=== PATIENT | female | born 1970 | race Caucasian/White ===

== ENCOUNTER 2019-03-19 18:43 | Emergency (ER) | payer BC, SELFPAY ==
[2019-03-19 18:45] VITALS: BP 133/68; PULSE 73; RESP 18; TEMP 36.5; O2SAT 100; BMI 34.9
--- NOTE | 2019-03-19 18:56 | ED.ARRPALP ---
HPI - Arrhythmia/Palpitations <KALIN Mcallister - Last Filed: 03/19/19 21:49> General Chief Complaint: Arrhythmia/Palpitations Stated Complaint: HEART PALPITAIONS Time Seen by Provider: 03/19/19 18:50 Source: patient Mode of arrival: ambulatory Limitations: no limitations History of Present Illness HPI narrative: 48-year-old female with a history of heart palpitations for the past few years, presents emergency department today complaining of increased heart palpitations today. She describes her heart palpitations as skipping a beat followed by few rapid beats. She states she has been worked up multiple times by her primary care provider for this but has been waiting for to get a halter monitor. She states today she experienced a slight amount of dizziness when she stood up and substernal chest pressure 1/10 that occurred while she was walking around her house [id number] today. She states that only lasted a couple of minutes. Recently in December her propanolol was increased to 60 mg, she took that after her increase in the heart palpitations in stated her symptoms have resolved. She denies headaches, shortness of breath, chest pain at this time, fevers, abdominal pain, nausea, vomiting, diarrhea, or dysuria. complaint: palpitations Related Data Allergies Allergy/AdvReac Type Severity Reaction Status Date / Time No Known Drug Allergies Allergy Verified 03/19/19 18:51 Review of Systems <KALIN Mcallister - Last Filed: 03/19/19 21:49> Review of Systems REVIEW OF SYSTEMS: GENERAL: Denies fever, chills, malaise, or wt. loss. HENT: No head trauma, hearing loss, rhinorrhea, epistaxis, sinus pressure, sore throat, or dysphagia. EYES: No loss of vision, double vision, eye pain, or irritation. CARDIOVASCULAR: Complains of palpitations, see HPI. RESPIRATORY: No shortness of breath, cough, or wheeze. GASTROINTESTINAL: No change in appetite, nausea, vomiting, stool changes, or melena. GENITOURINARY: No flank pain, urinary incontinence, hesitancy, frequency, or dysuria. No vaginal discharge or dyspareunia. MUSCULOSKELETAL: No pain, weakness, or deformities. INTEGUMENTARY: No rash, lesions, or pruritus. NEURO: No numbness, tingling, memory loss, confusion, or headaches. PSYCH: No behavior or mood changes. ENDOCRINOLOGY: No hair loss of temperature intolerance. HEMATOLOGY: No easy bruising. LYMPHATIC: No lymphadenopathy. PFSH <KALIN Mcallister - Last Filed: 03/19/19 21:49> Medical History Palpitations (Acute) Social History Smoking Status: Unknown if ever smoked Social History Smoking Status: Unknown if ever smoked Exam <KALIN Mcallister - Last Filed: 03/19/19 21:49> Initial Vital Signs Initial Vital Signs: Vital Signs Temperature 97.7 F 03/19/19 18:45 Pulse Rate 73 03/19/19 18:45 Respiratory Rate 18 03/19/19 18:45 Blood Pressure 133/68 03/19/19 18:45 Pulse Oximetry 100 03/19/19 18:45 PHYSICAL EXAMINATION: GENERAL: Well groomed, alert, and cooperative. Answers questions promptly and appropriately. Vital signs noted. HENT: Normocephalic, atraumatic. Ear canals patent. Oral mucosa is pink and moist. EYES: Conjunctiva pink, sclera white, no periorbital swelling. CHEST: Normal to inspection and without deformities. CARDIOVASCULAR: S1 and S2 sounds normal. Regular rate and rhythm, no murmurs, clicks, or bruits. No pedal edema. RESPIRATORY: Normal respiratory rate, trachea midline, airway patent. No stridor, nasal flaring or accessory muscle use. Lungs are clear in all [place] without wheeze, rhonchi, or crackles. GASTROINTESTINAL: Bowel sounds normoactive. Abdomen is soft and non-tender. No organomegaly. MUSCULOSKELETAL: Normal gait and coordination. Equal tone and mass bilaterally. EXTREMITIES: CMS intact. Moves all extremities. SKIN: Warm, dry, soft, appropriate color for ethnicity. No lesions, rashes, or wounds. NEURO: Alert and Oriented X 3. Good coordination. No ataxia, or sensory deficits, or cognitive issues. PSYCH: Appropriate affect and mood. <Gumaro Morgan DO - Last Filed: 03/19/19 22:42> Initial Vital Signs Initial Vital Signs: Vital Signs Temperature 97.7 F 03/19/19 18:45 Pulse Rate 73 03/19/19 18:45 Respiratory Rate 18 03/19/19 18:45 Blood Pressure 133/68 03/19/19 18:45 Pulse Oximetry 100 03/19/19 18:45 Scores <Angy MoralesKALIN mar - Last Filed: 03/19/19 21:49> HEART Score Heart Score history: Slightly Suspicious Heart Score EKG: Normal Heart Score Age: 45-64 years old Heart Score risk factors: No known risk factors Heart Score troponin: < or = to normal limit Heart Score Total: 1 Course <Angy MoralesKALIN mar - Last Filed: 03/19/19 21:49> Course Narrative: Throughout the emergency department stay, patient denied any heart palpitations. She was continuously monitored for any arrhythmias which did not occur. Orders Ordered: ED Orders 03/19/19 18:50 EKG-12 Lead Stat 03/19/19 18:56 XR chest 1V Stat 03/19/19 19:10 Complete Blood Count AUTO DIFF Stat Comprehensive Metabolic Panel Stat Magnesium Stat Thyroid Stimulating Hormone Stat Troponin & CK Cardiac Panel Stat Discontinued Medications Sodium Chloride (Normal Saline 0.9%) 1,000 mls @ 150 mls/hr IV CONT JOSE Last Infusion: 03/19/19 20:37 Dose: 150 mls/hr Admin: 03/19/19 19:03 Dose: 150 mls/hr Consultations Consultation #1: Patient staffed with Dr. morgan. Vital Signs - 8 hr 03/19/19 18:45 03/19/19 19:30 03/19/19 20:30 Temperature 97.7 F Pulse Rate 73 72 69 Respiratory Rate 18 16 14 Blood Pressure 133/68 Blood Pressure [Left Arm] 123/73 119/61 Pulse Oximetry 100 100 100 <Gumaro Morgan DO - Last Filed: 03/19/19 22:42> Orders Ordered: ED Orders 03/19/19 18:50 EKG-12 Lead Stat 03/19/19 18:56 XR chest 1V Stat 03/19/19 19:10 Complete Blood Count AUTO DIFF Stat Comprehensive Metabolic Panel Stat Magnesium Stat Thyroid Stimulating Hormone Stat Troponin & CK Cardiac Panel Stat Discontinued Medications Sodium Chloride (Normal Saline 0.9%) 1,000 mls @ 150 mls/hr IV CONT JOSE Last Infusion: 03/19/19 20:37 Dose: 150 mls/hr Admin: 03/19/19 19:03 Dose: 150 mls/hr Vital Signs - 8 hr 03/19/19 18:45 03/19/19 19:30 03/19/19 20:30 Temperature 97.7 F Pulse Rate 73 72 69 Respiratory Rate 18 16 14 Blood Pressure 133/68 Blood Pressure [Left Arm] 123/73 119/61 Pulse Oximetry 100 100 100 MDM - Arrhythmia/Palpitations <Angy FuchsKALIN - Last Filed: 03/19/19 21:49> Medical Records Attestation: I reviewed the patient's medical records. Lab Data Attestation: I reviewed the patient's lab results. Result diagrams: 03/19/19 19:10 03/19/19 19:10 Lab Results 03/19/19 03/19/19 03/19/19 Range/Units 19:10 19:10 19:10 WBC 8.6 (4.5-11.0) X10^3/uL RBC 3.95 L (4.0-5.2) X10^6/uL Hgb 11.9 L (12.0-16.0) g/dL Hct 36.1 (36-46) % MCV 91.5 (80-100) fL MCH 30.0 (26-34) PG MCHC 32.8 (30-36) % RDW 13.2 (11.6-14.8) % Plt Count 275 (150-400) X10^3/uL Neut % (Auto) 70.1 (50-75) % Lymph % (Auto) 18.6 L (25-40) % [place] % (Auto) 8.5 (3-14) % Eos % (Auto) 2.2 (2-4) % Baso % (Auto) 0.6 (0-2) % Neut # (Auto) 6100 (4653-4553) /uL Lymph # (Auto) 1600 (8784-4815) /uL [place] # (Auto) 700 (0-900) /uL Eos # (Auto) 200 (0-450) /uL Baso # (Auto) 100 (0-100) /uL Sodium 138 (137-145) mmol/L Potassium 3.9 (3.4-5.1) mmol/L Chloride 105 (98-107) mmol/L Carbon Dioxide 26 (22-32) mmol/L BUN 17 (7-17) mg/dL Creatinine 0.80 (0.52-1.04) mg/dL Estimated GFR > 60.0 (>60) mL/min BUN/Creatinine Ratio 21.3 (6-22) Glucose 110 H (70-100) mg/dL Calcium 9.1 (8.4-10.2) mg/dL Magnesium 1.8 (1.6-2.3) mg/dL Total Bilirubin 0.2 (0.2-1.3) mg/dL AST 28 (14-36) IU/L ALT 7 L (9-52) IU/L Alkaline Phosphatase 73 (38-126) U/L Total Creatine Kinase 86 (30-135) U/L CK-MB (CK-2) TNP CK-MB (CK-2) Rel Index TNP Troponin I < 0.012 (0.01-0.034) ng/mL Total Protein 7.6 (6.3-8.2) g/dL Albumin 4.3 (3.5-5.0) g/dL Globulin 3.3 (1.7-4.1) g/dL Albumin/Globulin Ratio 1.3 (1.0-2.8) TSH 0.88 (0.47-4.68) uIU/mL Imaging Data Chest x-ray: Radiologist's impression: [place] [address] XRay Report Signed Patient: Carlos Enrique Beckham#: [id number] : 1970Acct:[id number] Age/Sex: 48 / FDate of Service: 03/19/19 Loc: ED Accession Number: [id number] Procedure: XR chest 1V Ordering Provider: Angy Fuchs PROCEDURE: XR CHEST 1V INDICATIONS: Heart palp TECHNIQUE: One view of the chest was acquired. COMPARISON: None. FINDINGS: Surgical changes and devices: None. Lungs and pleura: Lungs are clear. No pleural effusions or pneumothorax. Mediastinum: Mediastinal contours appear normal. Heart size is normal. Bones and chest wall: No suspicious bony lesions. Overlying soft tissues appear unremarkable. IMPRESSION: No acute cardiopulmonary disease. Dictated by: Radhames Duran M.D. on 03/19/2019 at 19:12 Approved by: Radhames Duran M.D. on 03/19/2019 at 19:13 ECG Data Interpretation: Normal sinus rhythm, rate 67, AK interval 118, QTC 392. No ectopy no ST elevation or ST depression, no abnormal T-wave inversion.EKG was also viewed by Dr. Morgan. MDM Narrative Medical decision making narrative: Differential includes benign palpitations such as PVCs (most likely due to resolution with propanolol, report of palpitations for years, lack of other symptoms such as diaphoresis or shortness of breath, negative cardiac workup), acute coronary artery syndrome or arrhythmia (less likely negative cardiac enzymes, very little risk factors, negative chest x-ray, EKG negative for acute changes), thyroid dysfunction (less likely due to normal TSH), or hot flashes (possibility as patient states they may be correlated, however further testing is needed.). After speaking with patient I recommend further testing with cardiac monitoring if symptoms continue after discussion with primary care provider or director equipment, follow-up instructions discussed and return precautions given. Instructed patient to call director equipment tomorrow and discuss her symptoms. Review not feel like this patient needs to be admitted as her heart score is 1, this has been going on for years, and her symptoms have his resolved. Additionally, she is at lower risk for ACS. <Gumaro Morgan, DO - Last Filed: 03/19/19 22:42> Lab Data Lab Results 03/19/19 03/19/19 03/19/19 Range/Units 19:10 19:10 19:10 WBC 8.6 (4.5-11.0) X10^3/uL RBC 3.95 L (4.0-5.2) X10^6/uL Hgb 11.9 L (12.0-16.0) g/dL Hct 36.1 (36-46) % MCV 91.5 (80-100) fL MCH 30.0 (26-34) PG MCHC 32.8 (30-36) % RDW 13.2 (11.6-14.8) % Plt Count 275 (150-400) X10^3/uL Neut % (Auto) 70.1 (50-75) % Lymph % (Auto) 18.6 L (25-40) % [place] % (Auto) 8.5 (3-14) % Eos % (Auto) 2.2 (2-4) % Baso % (Auto) 0.6 (0-2) % Neut # (Auto) 6100 (1469-0311) /uL Lymph # (Auto) 1600 (3647-3405) /uL [place] # (Auto) 700 (0-900) /uL Eos # (Auto) 200 (0-450) /uL Baso # (Auto) 100 (0-100) /uL Sodium 138 (137-145) mmol/L Potassium 3.9 (3.4-5.1) mmol/L Chloride 105 (98-107) mmol/L Carbon Dioxide 26 (22-32) mmol/L BUN 17 (7-17) mg/dL Creatinine 0.80 (0.52-1.04) mg/dL Estimated GFR > 60.0 (>60) mL/min BUN/Creatinine Ratio 21.3 (6-22) Glucose 110 H (70-100) mg/dL Calcium 9.1 (8.4-10.2) mg/dL Magnesium 1.8 (1.6-2.3) mg/dL Total Bilirubin 0.2 (0.2-1.3) mg/dL AST 28 (14-36) IU/L ALT 7 L (9-52) IU/L Alkaline Phosphatase 73 (38-126) U/L Total Creatine Kinase 86 (30-135) U/L CK-MB (CK-2) TNP CK-MB (CK-2) Rel Index TNP Troponin I < 0.012 (0.01-0.034) ng/mL Total Protein 7.6 (6.3-8.2) g/dL Albumin 4.3 (3.5-5.0) g/dL Globulin 3.3 (1.7-4.1) g/dL Albumin/Globulin Ratio 1.3 (1.0-2.8) TSH 0.88 (0.47-4.68) uIU/mL Discharge Plan Departure Patient Disposition: Home Clinical Impression: Palpitations Discharge Date/Time: 03/19/19 20:38 Interventions: ED Discharge Assessment Last Done: 03/19/19 20:38 Instructions: DI for Palpitations Activity Restrictions/Additional Instructions: Thank you for entrusting me with your care today. As discussed, laboratory, x-ray, and EKG results did not show any concerning cause for your palpitations. Please follow up with her primary care provider in the next week to discuss further testing such as a Holter monitor if indicated. Return to the emergency department if you develop sudden chest pain, shortness of breath, excessive sweating, dizziness, syncope, or vomiting. <Gumaro Morgan, DO - Last Filed: 03/19/19 22:42> Cosign ED Attending Tegan Attestation: I was available for consultation during this patient's emergency department encounter
[2019-03-19] MEDS: SODIUM CHLORIDE 0.9% 1,000 ML 150 ML IV (19:03)
--- NOTE | 2019-03-19 19:03 | ED_ITS ---
HPI - Arrhythmia/Palpitations <KALIN Mcallister - Last Filed: 03/19/19 21:49> General Chief Complaint: Arrhythmia/Palpitations Stated Complaint: HEART PALPITAIONS Time Seen by Provider: 03/19/19 18:50 Source: patient Mode of arrival: ambulatory Limitations: no limitations History of Present Illness HPI narrative: 48-year-old female with a history of heart palpitations for the past few years, presents emergency department today complaining of increased heart palpitations today. She describes her heart palpitations as skipping a beat followed by few rapid beats. She states she has been worked up multiple times by her primary care provider for this but has been waiting for to get a halter monitor. She states today she experienced a slight amount of dizziness when she stood up and substernal chest pressure 1/10 that occurred while she was walking around her house [id number] today. She states that only lasted a couple of minutes. Recently in December her propanolol was increased to 60 mg, she took that after her increase in the heart palpitations in stated her symptoms have re solved. She denies headaches, shortness of breath, chest pain at this time, fevers, abdominal pain, nausea, vomiting, diarrhea, or dysuria. MD complaint: palpitations Related Data Allergies Allergy/AdvReac Type Severity Reaction Status Date / Time No Known Drug Allergies Allergy Verified 03/19/19 18:51 Review of Systems <KALIN Mcallister - Last Filed: 03/19/19 21:49> Review of Systems REVIEW OF SYSTEMS: GENERAL: Denies fever, chills, malaise, or wt. loss. HENT: No head trauma, hearing loss, rhinorrhea, epistaxis, sinus pressure, sore throat, or dysphagia. EYES: No loss of vision, double vision, eye pain, or irritation. CARDIOVASCULAR: Complains of palpitations, see HPI. RESPIRATORY: No shortness of breath, cough, or wheeze. GASTROINTESTINAL: No change in appetite, nausea, vomiting, stool changes, or melena. GENITOURINARY: No flank pain, urinary incontinence, hesitancy, frequency, or dysuria. No vaginal discharge or dyspareunia. MUSCULOSKELETAL: No pain, weakness, or deformities. INTEGUMENTARY: No rash, lesions, or pruritus. NEURO: No numbness, tingling, memory loss, confusion, or headaches. PSYCH: No behavior or mood changes. ENDOCRINOLOGY: No hair loss of temperature intolerance. HEMATOLOGY: No easy bruising. LYMPHATIC: No lymphadenopathy. PFSH <KALIN Mcallister - Last Filed: 03/19/19 21:49> Medical History Palpitations (Acute) Social History Smoking Status: Unknown if ever smoked Social History Smoking Status: Unknown if ever smoked Exam <KALIN Mcallister - Last Filed: 03/19/19 21:49> Initial Vital Signs Initial Vital Signs: Vital Signs Temperature 97.7 F 03/19/19 18:45 Pulse Rate 73 03/19/19 18:45 Respiratory Rate 18 03/19/19 18:45 Blood Pressure 133/68 03/19/19 18:45 Pulse Oximetry 100 03/19/19 18:45 PHYSICAL EXAMINATION: GENERAL: Well groomed, alert, and cooperative. Answers questions promptly and appropriately. Vital signs noted. HENT: Normocephalic, atraumatic. Ear canals patent. Oral mucosa is pink and moist. EYES: Conjunctiva pink, sclera white, no periorbital swelling. CHEST: Normal to inspection and without deformities. CARDIOVASCULAR: S1 and S2 sounds normal. Regular rate and rhythm, no murmurs, clicks, or bruits. No pedal edema. RESPIRATORY: Normal respiratory rate, trachea midline, airway patent. No stridor, nasal flaring or accessory muscle use. Lungs are clear in all [place] without wheeze, rhonchi, or crackles. GASTROINTESTINAL: Bowel sounds normoactive. Abdomen is soft and non-tender. No organomegaly. MUSCULOSKELETAL: Normal gait and coordination. Equal tone and mass bilaterally. EXTREMITIES: CMS intact. Moves all extremities. SKIN: Warm, dry, soft, appropriate color for ethnicity. No lesions, rashes, or wounds. NEURO: Alert and Oriented X 3. Good coordination. No ataxia, or sensory deficits, or cognitive issues. PSYCH: Appropriate affect and mood. <Gumaro Morgan DO - Last Filed: 03/19/19 22:42> Initial Vital Signs Initial Vital Signs: Vital Signs Temperature 97.7 F 03/19/19 18:45 Pulse Rate 73 03/19/19 18:45 Respiratory Rate 18 03/19/19 18:45 Blood Pressure 133/68 03/19/19 18:45 Pulse Oximetry 100 03/19/19 18:45 Scores <Angy FuchsKALIN - Last Filed: 03/19/19 21:49> HEART Score Heart Score history: Slightly Suspicious Heart Score EKG: Normal Heart Score Age: 45-64 years old Heart Score risk factors: No known risk factors Heart Score troponin: < or = to normal limit Heart Score Total: 1 Course <Angy FuchsKALIN - Last Filed: 03/19/19 21:49> Course Narrative: Throughout the emergency department stay, patient denied any heart palpitations. She was continuously monitored for any arrhythmias which did not occur. Orders Ordered: ED Orders 03/19/19 18:50 EKG-12 Lead Stat 03/19/19 18:56 XR chest 1V Stat 03/19/19 19:10 Complete Blood Count AUTO DIFF Stat Comprehensive Metabolic Panel Stat Magnesium Stat Thyroid Stimulating Hormone Stat Troponin & CK Cardiac Panel Stat Discontinued Medications Sodium Chloride (Normal Saline 0.9%) 1,000 mls @ 150 mls/hr IV CONT JOSE Last Infusion: 03/19/19 20:37 Dose: 150 mls/hr Admin: 03/19/19 19:03 Dose: 150 mls/hr Consultations Consultation #1: Patient staffed with Dr. morgan. Vital Signs - 8 hr 03/19/19 18:45 03/19/19 19:30 03/19/19 20:30 Temperature 97.7 F Pulse Rate 73 72 69 Respiratory Rate 18 16 14 Blood Pressure 133/68 Blood Pressure [Left Arm] 123/73 119/61 Pulse Oximetry 100 100 100 <Gumaro Morgan DO - Last Filed: 03/19/19 22:42> Orders Ordered: ED Orders 03/19/19 18:50 EKG-12 Lead Stat 03/19/19 18:56 XR chest 1V Stat 03/19/19 19:10 Complete Blood Count AUTO DIFF Stat Comprehensive Metabolic Panel Stat Magnesium Stat Thyroid Stimulating Hormone Stat Troponin & CK Cardiac Panel Stat Discontinued Medications Sodium Chloride (Normal Saline 0.9%) 1,000 mls @ 150 mls/hr IV CONT JOSE Last Infusion: 03/19/19 20:37 Dose: 150 mls/hr Admin: 03/19/19 19:03 Dose: 150 mls/hr Vital Signs - 8 hr 03/19/19 18:45 03/19/19 19:30 03/19/19 20:30 Temperature 97.7 F Pulse Rate 73 72 69 Respiratory Rate 18 16 14 Blood Pressure 133/68 Blood Pressure [Left Arm] 123/73 119/61 Pulse Oximetry 100 100 100 MDM - Arrhythmia/Palpitations <Angy FuchsKALIN - Last Filed: 03/19/19 21:49> Medical Records Attestation: I reviewed the patient's medical records. Lab Data Attestation: I reviewed the patient's lab results. Result diagrams: 03/19/19 19:10 03/19/19 19:10 Lab Results 03/19/19 03/19/19 03/19/19 Range/Units 19:10 19:10 19:10 WBC 8.6 (4.5-11.0) X10^3/uL RBC 3.95 L (4.0-5.2) X10^6/uL Hgb 11.9 L (12.0-16.0) g/dL Hct 36.1 (36-46) % MCV 91.5 (80-100) fL MCH 30.0 (26-34) PG MCHC 32.8 (30-36) % RDW 13.2 (11.6-14.8) % Plt Count 275 (150-400) X10^3/uL Neut % (Auto) 70.1 (50-75) % Lymph % (Auto) 18.6 L (25-40) % Grayson % (Auto) 8.5 (3-14) % Eos % (Auto) 2.2 (2-4) % Baso % (Auto) 0.6 (0-2) % Neut # (Auto) 6100 (1611-3497) /uL Lymph # (Auto) 1600 (3375-5630) /uL Grayson # (Auto) 700 (0-900) /uL Eos # (Auto) 200 (0-450) /uL Baso # (Auto) 100 (0-100) /uL Sodium 138 (137-145) mmol/L Potassium 3.9 (3.4-5.1) mmol/L Chloride 105 (98-107) mmol/L Carbon Dioxide 26 (22-32) mmol/L BUN 17 (7-17) mg/dL Creatinine 0.80 (0.52-1.04) mg/dL Estimated GFR > 60.0 (>60) mL/min BUN/Creatinine Ratio 21.3 (6-22) Glucose 110 H (70-100) mg/dL Calcium 9.1 (8.4-10.2) mg/dL Magnesium 1.8 (1.6-2.3) mg/dL Total Bilirubin 0.2 (0.2-1.3) mg/dL AST 28 (14-36) IU/L ALT 7 L (9-52) IU/L Alkaline Phosphatase 73 (38-126) U/L Total Creatine Kinase 86 (30-135) U/L CK-MB (CK-2) TNP CK-MB (CK-2) Rel Index TNP Troponin I < 0.012 (0.01-0.034) ng/mL Total Protein 7.6 (6.3-8.2) g/dL Albumin 4.3 (3.5-5.0) g/dL Globulin 3.3 (1.7-4.1) g/dL Albumin/Globulin Ratio 1.3 (1.0-2.8) TSH 0.88 (0.47-4.68) uIU/mL Imaging Data Chest x-ray: Radiologist's impression: [place] [address] XRay Report Signed Patient: Carlos Enrique Beckham#: [id number] : 1970Acct:[id number] Age/Sex: 48 / FDate of Service: 03/19/19 Loc: ED Accession Number: [id number] Procedure: XR chest 1V Ordering Provider: Angy Fuchs PROCEDURE: XR CHEST 1V INDICATIONS: Heart palp TECHNIQUE: One view of the chest was acquired. COMPARISON: None. FINDINGS: Surgical changes and devices: None. Lungs and pleura: Lungs are clear. No pleural effusions or pneumothorax. Mediastinum: Mediastinal contours appear normal. Heart size is normal. Bones and chest wall: No suspicious bony lesions. Overlying soft tissues appear unremarkable. IMPRESSION: No acute cardiopulmonary disease. Dictated by: Radhames Duran M.D. on 03/19/2019 at 19:12 Approved by: Radhames Duran M.D. on 03/19/2019 at 19:13 ECG Data Interpretation: Normal sinus rhythm, rate 67, WV interval 118, QTC 392. No ectopy no ST elevation or ST depression, no abnormal T-wave inversion.EKG was also viewed by Dr. Morgan. MDM Narrative Medical decision making narrative: Differential includes benign palpitations such as PVCs (most likely due to resolution with propanolol, report of palpitations for years, lack of other symptoms such as diaphoresis or shortness of breath, negative cardiac workup), acute coronary artery syndrome or arrhythmia (less likely negative cardiac enzymes, very little risk factors, negative chest x-ray, EKG negative for acute changes), thyroid dysfunction (less likely due to normal TSH), or hot flashes (possibility as patient states they may be correlated, however further testing is needed.). After speaking with patient I recommend further testing with cardiac monitoring if symptoms continue after discussion with primary care provider or ib[employer] mainframe developer, follow-up instructions discussed and return precautions given. Instructed patient to call ib[employer] mainframe developer tomorrow and discuss her symptoms. Review not feel like this patient needs to be admitted as her heart score is 1, this has been going on for years, and her symptoms have his resolved. Additionally, she is at lower risk for ACS. <Gumaro Morgan, DO - Last Filed: 03/19/19 22:42> Lab Data Lab Results 03/19/19 03/19/19 03/19/19 Range/Units 19:10 19:10 19:10 WBC 8.6 (4.5-11.0) X10^3/uL RBC 3.95 L (4.0-5.2) X10^6/uL Hgb 11.9 L (12.0-16.0) g/dL Hct 36.1 (36-46) % MCV 91.5 (80-100) fL MCH 30.0 (26-34) PG MCHC 32.8 (30-36) % RDW 13.2 (11.6-14.8) % Plt Count 275 (150-400) X10^3/uL Neut % (Auto) 70.1 (50-75) % Lymph % (Auto) 18.6 L (25-40) % Grayson % (Auto) 8.5 (3-14) % Eos % (Auto) 2.2 (2-4) % Baso % (Auto) 0.6 (0-2) % Neut # (Auto) 6100 (9695-4814) /uL Lymph # (Auto) 1600 (6098-1269) /uL Grayson # (Auto) 700 (0-900) /uL Eos # (Auto) 200 (0-450) /uL Baso # (Auto) 100 (0-100) /uL Sodium 138 (137-145) mmol/L Potassium 3.9 (3.4-5.1) mmol/L Chloride 105 (98-107) mmol/L Carbon Dioxide 26 (22-32) mmol/L BUN 17 (7-17) mg/dL Creatinine 0.80 (0.52-1.04) mg/dL Estimated GFR > 60.0 (>60) mL/min BUN/Creatinine Ratio 21.3 (6-22) Glucose 110 H (70-100) mg/dL Calcium 9.1 (8.4-10.2) mg/dL Magnesium 1.8 (1.6-2.3) mg/dL Total Bilirubin 0.2 (0.2-1.3) mg/dL AST 28 (14-36) IU/L ALT 7 L (9-52) IU/L Alkaline Phosphatase 73 (38-126) U/L Total Creatine Kinase 86 (30-135) U/L CK-MB (CK-2) TNP CK-MB (CK-2) Rel Index TNP Troponin I < 0.012 (0.01-0.034) ng/mL Total Protein 7.6 (6.3-8.2) g/dL Albumin 4.3 (3.5-5.0) g/dL Globulin 3.3 (1.7-4.1) g/dL Albumin/Globulin Ratio 1.3 (1.0-2.8) TSH 0.88 (0.47-4.68) uIU/mL Discharge Plan Departure Patient Disposition: Home Clinical Impression: Palpitations Discharge Date/Time: 03/19/19 20:38 Interventions: ED Discharge Assessment Last Done: 03/19/19 20:38 Instructions: DI for Palpitations Activity Restrictions/Additional Instructions: Thank you for entrusting me with your care today. As discussed, laboratory, x- ray, and EKG results did not show any concerning cause for your palpitations. Please follow up with her primary care provider in the next week to discuss fur ther testing such as a Holter monitor if indicated. Return to the emergency department if you develop sudden chest pain, shortness of breath, excessive sweating, dizziness, syncope, or vomiting. <Gumaro Morgan, - Last Filed: 03/19/19 22:42> Cosign ED Attending Tegan Attestation: I was available for consultation during this patient's emergency department encounter
[2019-03-19 19:21] LABS: Add Manual Diff / Slide Review NO; Basophils Absolute Auto 100 /uL (0-100); Basophils Percent Auto 0.6 % (0-2); Eosinophils Absolute Auto 200 /uL (0-450); Eosinophils Percent Auto 2.2 % (2-4); Hematocrit 36.1 % (36-46); Hemoglobin 11.9 g/dL (12.0-16.0); Lymphocytes Absolute Auto 1600 /uL (1100-4500); Lymphocytes Percent Auto 18.6 % (25-40); Mean Corpuscular HGB Conc 32.8 % (30-36); Mean Corpuscular Volume 91.5 fL (80-100); Monocytes Absolute Auto 700 /uL (0-900); Monocytes Percent Auto 8.5 % (3-14); Neutrophils Absolute Auto 6100 /uL (1500-7000); Neutrophils Percent Auto 70.1 % (50-75); Platelet Count 275 X10^3/uL (150-400); Red Blood Cell Count 3.95 X10^6/uL (4.0-5.2); Red Cell Distribution Width 13.2 % (11.6-14.8); White Blood Cell Count 8.6 X10^3/uL (4.5-11.0)
[2019-03-19 19:30] VITALS: BP 123/73; PULSE 72; RESP 16; O2SAT 100
[2019-03-19 19:38] LABS: Alanine Aminotransferase 7 IU/L (9-52); Albumin 4.3 g/dL (3.5-5.0); Albumin Globulin Ratio 1.3 (1.0-2.8); Alkaline Phosphatase 73 U/L (38-126); Aspartate Aminotransferase 28 IU/L (14-36); BUN Creatinine Ratio 21.3 (6-22); Bilirubin Total 0.2 mg/dL (0.2-1.3); Blood Urea Nitrogen 17 mg/dL (7-17); Calcium 9.1 mg/dL (8.4-10.2); Carbon Dioxide 26 mmol/L (22-32); Chloride 105 mmol/L (98-107); Creatine Kinase 86 U/L (30-135); Estimated Glomerular Filt Rate > 60.0 mL/min (>60); Globulin 3.3 g/dL (1.7-4.1); Glucose 110 mg/dL (70-100); HEMOLYSIS < 15 (0-50); Magnesium 1.8 mg/dL (1.6-2.3); Potassium 3.9 mmol/L (3.4-5.1); Sodium 138 mmol/L (137-145); Total Protein 7.6 g/dL (6.3-8.2)
[2019-03-19 19:49] LABS: Troponin I < 0.012 ng/mL (0.01-0.034)
[2019-03-19 20:08] LABS: Thyroid Stimulating Hormone 0.88 uIU/mL (0.47-4.68)
[2019-03-19 20:30] VITALS: BP 119/61; PULSE 69; RESP 14; O2SAT 100
== END 2019-03-19 20:38 | disposition home or self-care (01) ==
PROVIDERS: Emergency Provider Nurse Practitioner
DX: R00.2 Palpitations (principal)
CPT/HCPCS: 36591; 71045; 80053; 82550; 83735; 84443; 84484; 85025; 93005; 96360; 96361; 99283; 99285

== ENCOUNTER 2019-05-10 11:04 | Observation (INO) | payer BC, SELFPAY ==
[2019-05-10] VITALS (10 sets, daily range): BP systolic 102–152; BP diastolic 50–98; PULSE 56–79; RESP 14–18; TEMP 36.4–36.7; O2SAT 97–100; BMI 35.6
[2019-05-10 11:25] LABS: Add Manual Diff / Slide Review NO; Basophils Absolute Auto 0 /uL (0-100); Basophils Percent Auto 0.2 % (0-2); Eosinophils Absolute Auto 100 /uL (0-450); Eosinophils Percent Auto 1.5 % (2-4); Hematocrit 36.7 % (36-46); Hemoglobin 12.4 g/dL (12.0-16.0); Lymphocytes Absolute Auto 1800 /uL (1100-4500); Lymphocytes Percent Auto 26.2 % (25-40); Mean Corpuscular HGB Conc 33.8 % (30-36); Mean Corpuscular Hemoglobin 30.5 PG (26-34); Mean Corpuscular Volume 90.2 fL (80-100); Monocytes Absolute Auto 800 /uL (0-900); Neutrophils Absolute Auto 4200 /uL (1500-7000); Neutrophils Percent Auto 60.1 % (50-75); Platelet Count 322 X10^3/uL (150-400); Red Blood Cell Count 4.07 X10^6/uL (4.0-5.2); Red Cell Distribution Width 13.2 % (11.6-14.8)
[2019-05-10] MEDS: SODIUM CHLORIDE 0.9% 1,000 ML 150 ML IV (11:37)
[2019-05-10 11:38] LABS: Alanine Aminotransferase 11 IU/L (9-52); Albumin 4.6 g/dL (3.5-5.0); Albumin Globulin Ratio 1.4 (1.0-2.8); Alkaline Phosphatase 72 U/L (38-126); Aspartate Aminotransferase 32 IU/L (14-36); Bilirubin Total 0.5 mg/dL (0.2-1.3); Blood Urea Nitrogen 15 mg/dL (7-17); Calcium 9.6 mg/dL (8.4-10.2); Carbon Dioxide 26 mmol/L (22-32); Chloride 103 mmol/L (98-107); Creatine Kinase 121 U/L (30-135); Estimated Glomerular Filt Rate > 60.0 mL/min (>60); Globulin 3.4 g/dL (1.7-4.1); Glucose 101 mg/dL (70-100); HEMOLYSIS < 15 (0-50); Lipase 73 U/L (23-300); Magnesium 1.9 mg/dL (1.6-2.3); Potassium 4.6 mmol/L (3.4-5.1); Sodium 140 mmol/L (137-145)
[2019-05-10 11:49] LABS: Troponin I < 0.012 ng/mL (0.01-0.034)
[2019-05-10 11:53] LABS: CKMB % Relative Index 0.7 % (1.5-5.0); Creatine Kinase MB 0.87 ng/mL (<2.37)
--- NOTE | 2019-05-10 11:56 | ED_ITS ---
HPI - Arrhythmia/Palpitations General Chief Complaint: Arrhythmia/Palpitations Stated Complaint: irregular holter monitor reading Time Seen by Provider: 05/10/19 11:11 Source: patient Mode of arrival: Ambulatory Limitations: no limitations History of Present Illness HPI narrative: 48-year-old female nonsmoker with extensive history of palpitations and episodes of chest pain presents to the emergency department at the request of Cardiology. She was wearing a Holter monitor and noted extended tachycardic episodes ranging from the 180s to 200s which were symptomatic for the patient. She was sent to us for evaluation. 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 She denies any alcohol or street drugs. She denies any new medications. She denies any current symptoms. She is not dizzy nor weak or lightheaded though she become so when she is tachycardic MD complaint: rapid heart beat and heart racing Onset (ago): minute(s) Duration: now resolved Severity: moderate Context: occurred during rest Associated symptoms: near-syncope Treatments prior to arrival: beta-rose mary Related Data Home Medications Medication Instructions Recorded Confirmed ibuprofen [Advil] 200 mg PO PRN PRN 05/10/19 05/10/19 propranolol 60 mg PO DAILY 05/10/19 05/10/19 Allergies Allergy/AdvReac Type Severity Reaction Status Date / Time No Known Drug Allergies Allergy Verified 03/19/19 18:51 Review of Systems Constitutional Constitutional: Denies chills, Denies fatigue, Denies fever(s), Denies frequent falls, Denies lethargy and Denies weakness Eyes Eyes: Denies change in vision, Denies eye discharge, Denies irritation and Denies loss of vision ENT Ears, Nose, Mouth, and Throat: Denies change in voice, Denies dizziness, Denies neck pain, Denies sore throat and Denies throat swelling Cardiovascular Cardiovascular: Denies chest pain, Reports rapid heart rate, Denies irregular heart rhythm, Reports lightheadedness, Reports palpitations, Denies dyspnea, Denies dyspnea on exertion and Denies orthopnea Respiratory Respiratory: Denies cough, Denies dyspnea, Denies dyspnea on exertion and Denies wheezing Gastrointestinal Gastrointestinal: Denies abdominal pain, Denies change in bowel habits, Denies diarrhea, Denies nausea and Denies vomiting Genitourinary Genitourinary: Denies hematuria, Denies flank pain, Denies urinary incontinence and Denies urinary urgency Musculoskeletal Musculoskeletal: Denies back pain, Denies muscle weakness, Denies neck pain, Denies numbness and Denies tingling Integumentary/Breasts Skin/Breast: Denies pruritus, Denies erythema, Denies rash and Denies wounds Neurologic Neurologic: Denies behavioral changes, Denies confusion, Denies dizziness, Denies frequent falls, Denies loss of vision, Denies numbness, Denies tingling and Denies weakness Psychiatric Psychiatric: Denies anxiety, Denies behavioral changes, Denies confusion, Denies depression, Denies homicidal ideation and Denies suicidal ideation Endocrine Endocrine: Denies fatigue, Denies flushing and Reports palpitations Hematologic/Lymphatic Hematologic/Lymphatic: Denies easy bruising Allergic/Immunologic Allergic/Immunologic: Denies urticaria, Denies throat swelling and Denies wheezing [facility] Social History household members: spouse Smoking Status: Never smoker Exam Narrative Exam Narrative: GENERAL: [48] year old patient appears stated age. Well- nourished, well-developed patient, in mild distress. HEAD: Atraumatic. Normocephalic. EYES: Pupils equal round and reactive. Extraocular motions intact. No scleral icterus. No injection or drainage. ENT: Nose without bleeding, purulent drainage. Throat without erythema, tonsillar hypertrophy or exudate. Airway patent. NECK: Trachea midline. Non tender CARDIOVASCULAR: Regular rate and rhythm without murmurs, gallops, or rubs. RESPIRATORY: Clear to auscultation. Breath sounds equal bilaterally. No wheezes, rales, or rhonchi. GASTROINTESTINAL: Abdomen soft, non-tender, nondistended. EXTREMITIES: No edema or joint tenderness. BACK: Nontender without deformity or crepitance. No flank tenderness. NEURO: AOx3. SKIN: No rash or erythema of visible areas Initial Vital Signs Initial Vital Signs: Vital Signs Temperature 98.1 F 05/10/19 11:16 Pulse Rate 79 05/10/19 11:16 Respiratory Rate 16 05/10/19 11:16 Blood Pressure 152/98 H 05/10/19 11:16 Pulse Oximetry 100 05/10/19 11:16 Course Orders Ordered: ED Orders 05/10/19 11:14 Complete Blood Count AUTO DIFF Stat Comprehensive Metabolic Panel Stat Lipase Stat Magnesium Stat T4 Total Thyroxine Stat Thyroid Stimulating Hormone Stat Troponin & CK Cardiac Panel Stat 05/10/19 11:15 EKG-12 Lead Stat Sodium Chloride (Normal Saline 0.9%) 1,000 mls @ 150 mls/hr IV CONT JOSE Last Admin: 05/10/19 11:37 Dose: 150 mls/hr Documented by: LESLY Influenza Virus Vaccine (Flu Vaccine) 0.5 ml IM .ONCE ONE Stop: 05/11/19 09:01 Metoprolol Succinate (Toprol Xl) 25 mg PO DAILY JOSE Discontinued Medications Metoprolol Succinate (Toprol Xl) 25 mg PO NOW ONE Stop: 05/10/19 13:38 Last Admin: 05/10/19 13:55 Dose: 25 mg Documented by: LESLY Reevaluation(s) Reevaluation #1: One brief episode of tachycardia noted Consultations Consultation #1: discussion with cardiology (Rosa) whom has reviewed a Holter monitor and notes 2 episodes of nonsustained V-tach. Given her near syncope and need for a change in her medications as recommendation is that the patient is brought in the hospital on observation, he recommends metoprolol XL 25 mg p.o. now with telemetry. Patient had normal echocardiogram in December and therefore a new 1 is not necessarily needed. He states he is on-call over the weekend and is happy to answer any ongoing questions if needed Vital Signs Vital signs: Vital Signs - 8 hr 05/10/19 13:55 Pulse Rate 63 Blood Pressure 121/68 MDM - Arrhythmia/Palpitations Lab Data Result diagrams: 05/10/19 11:14 05/10/19 11:14 Labs: Lab Results 05/10/19 05/10/19 05/10/19 Range/Units 11:14 11:14 11:14 WBC 7.0 (4.5-11.0) X10^3/uL RBC 4.07 (4.0-5.2) X10^6/uL Hgb 12.4 (12.0-16.0) g/dL Hct 36.7 (36-46) % MCV 90.2 (80-100) fL MCH 30.5 (26-34) PG MCHC 33.8 (30-36) % RDW 13.2 (11.6-14.8) % Plt Count 322 (150-400) X10^3/uL Neut % (Auto) 60.1 (50-75) % Lymph % (Auto) 26.2 (25-40) % Fannin % (Auto) 12.0 (3-14) % Eos % (Auto) 1.5 L (2-4) % Baso % (Auto) 0.2 (0-2) % Neut # (Auto) 4200 (1334-3856) /uL Lymph # (Auto) 1800 (3354-9036) /uL Fannin # (Auto) 800 (0-900) /uL Eos # (Auto) 100 (0-450) /uL Baso # (Auto) 0 (0-100) /uL Sodium 140 (137-145) mmol/L Potassium 4.6 (3.4-5.1) mmol/L Chloride 103 (98-107) mmol/L Carbon Dioxide 26 (22-32) mmol/L BUN 15 (7-17) mg/dL Creatinine 0.60 (0.52-1.04) mg/dL Estimated GFR > 60.0 (>60) mL/min BUN/Creatinine Ratio 25.0 H (6-22) Glucose 101 H (70-100) mg/dL Calcium 9.6 (8.4-10.2) mg/dL Magnesium 1.9 (1.6-2.3) mg/dL Total Bilirubin 0.5 (0.2-1.3) mg/dL AST 32 (14-36) IU/L ALT 11 (9-52) IU/L Alkaline Phosphatase 72 (38-126) U/L Total Creatine Kinase 121 (30-135) U/L CK-MB (CK-2) 0.87 (<2.37) ng/mL CK-MB (CK-2) Rel Index 0.7 L (1.5-5.0) % Troponin I < 0.012 (0.01-0.034) ng/mL Total Protein 8.0 (6.3-8.2) g/dL Albumin 4.6 (3.5-5.0) g/dL Globulin 3.4 (1.7-4.1) g/dL Albumin/Globulin Ratio 1.4 (1.0-2.8) Lipase 73 (23-300) U/L TSH 1.15 (0.47-4.68) uIU/mL Thyroxine (T4) 8.94 (5.5-11.0) ug/dL Discharge Plan Departure Patient Disposition: Admitted as Observation Clinical Impression: Palpitations, Ventricular tachycardia Discharge Date/Time: 05/10/19 14:40 Referrals: Argenis Madison MD [Primary Care Provider] - Admit Date/Time: 05/10/19 14:19 Admit Provider: Ian Wayne
[2019-05-10 12:02] LABS: T4 Total Thyroxine 8.94 ug/dL (5.5-11.0)
[2019-05-10 12:16] LABS: Thyroid Stimulating Hormone 1.15 uIU/mL (0.47-4.68)
[2019-05-10] MEDS: METOPROLOL ER 25 MG TABLET PO (13:55)
--- NOTE | 2019-05-10 17:02 | PM.HP.1 ---
History of Present Illness History of Present Illness Date Patient Seen: 05/10/19 Time Patient Seen: 16:00 Chief complaint: irregular holter monitor reading Narrative: Ms. Beckham is a 48-year-old female with remote history of lymphoma who presented with an arrhythmia noted on a Holter monitor. Patient has been complaining of palpitations on and off for the past few years she says but have been increasing more recently, now occurring at least daily. Symptoms usually last for anywhere from a few minutes to as long as a couple of hours. She feels palpitations, dizziness, and mild nausea. She was seen by her primary care doctor and was diagnosed with anxiety and was started on propranolol us but still continued to have symptoms. She was seen by traveling inventory associate who started a Holter monitor. She had a few episodes over the past few days, and this morning she was called to come into the emergency room after an episode of ventricular tachycardia noted on her Holter monitor. She currently denies any chest pain, shortness of breath, and her last palpitations were this morning. She denies any recent fever, chills, nasal congestion, abdominal pain, vomiting, diarrhea, dysuria. In the ED she was asymptomatic, however they spoke with the traveling inventory associate over at [facility] who recommend that she start 25 mg of metoprolol and to monitor her after initiation of this medication. Further recommended a in echocardiogram and if she is still here a stress test on Monday. Patient History Family & Social History Social History: household members spouse Prior Living Arrangements House Safety & Behavioral: Feels Safe in Current Yes Environment Been Physically Hurt or No Threatened By a Person Suicidal Ideation Description None Suicide Plan Description No Plan Tobacco & Substance use: Smoking Status Never smoker alcohol intake frequency holiday/special occasion Substance Use Type does not use Meds Home Medications and Allergies Home Medications Medication Instructions Recorded Confirmed Type ibuprofen [Advil] 200 mg PO PRN PRN 05/10/19 05/10/19 History propranolol 60 mg PO DAILY 05/10/19 05/10/19 History Allergies Allergy/AdvReac Type Severity Reaction Status Date / Time No Known Drug Allergies Allergy Verified 03/19/19 18:51 Review of Systems Review of Systems Narrative: All other systems reviewed with the patient and are negative unless otherwise stated. Exam Vital Signs (past 8 hours): - 05/10/19 11:16 05/10/19 11:55 05/10/19 13:55 Temperature 98.1 F Pulse Rate 79 62 63 Respiratory Rate 16 18 Blood Pressure 152/98 H 121/68 Blood Pressure [Right Arm] 116/65 Pulse Oximetry 100 98 05/10/19 14:22 05/10/19 15:25 Temperature 97.6 F Pulse Rate 57 L 56 L Respiratory Rate 16 Blood Pressure 138/79 115/79 Blood Pressure [Right Arm] Pulse Oximetry 100 Oxygen Delivery Method Room Air Narrative Exam Narrative: GENERAL APPEARANCE: Well developed, well nourished, in no acute distress. SKIN: Inspection of the skin reveals no rashes, ulcerations or petechiae. HEENT: The sclerae were anicteric and conjunctivae were pink and moist. Extraocular movements were intact and pupils were equal, round with normal accommodation. External inspection of the ears and nose showed no scars, lesions, or masses. Lips, teeth, and gums showed normal mucosa. The oral mucosa, hard and soft palate, tongue and posterior pharynx were unremarkable. NECK: Supple and symmetric. There was no thyroid enlargement, and no tenderness, or masses were felt. CHEST: Normal AP diameter and normal contour without any kyphoscoliosis. LUNGS: Auscultation of the lungs revealed no wheezes, rhonchi, or rales. CARDIOVASCULAR: There was a regular rate and rhythm without any murmurs, gallops, rubs. Peripheral pulses were 2+ and symmetric. ABDOMEN: Soft and nontender with normal bowel sounds. No ascites was noted. MUSCULOSKELETAL: There was no tenderness or effusions noted. Muscle strength and tone were normal. EXTREMITIES: No cyanosis, clubbing or edema. NEUROLOGIC: Alert and oriented x 3. Normal affect. Gait was normal. Strength is +5/5 in the Upper Extremities and Lower Extremities Bilaterally. Sensation to touch was normal. Objective Labs Result Diagrams: 05/10/19 11:14 05/10/19 11:14 Labs: Laboratory Results - last 24 hr 05/10/19 05/10/19 05/10/19 11:14 11:14 11:14 WBC 7.0 RBC 4.07 Hgb 12.4 Hct 36.7 MCV 90.2 MCH 30.5 MCHC 33.8 RDW 13.2 Plt Count 322 Neut % (Auto) 60.1 Lymph % (Auto) 26.2 Alexander % (Auto) 12.0 Eos % (Auto) 1.5 L Baso % (Auto) 0.2 Neut # (Auto) 4200 Lymph # (Auto) 1800 Alexander # (Auto) 800 Eos # (Auto) 100 Baso # (Auto) 0 Sodium 140 Potassium 4.6 Chloride 103 Carbon Dioxide 26 BUN 15 Creatinine 0.60 Estimated GFR > 60.0 BUN/Creatinine Ratio 25.0 H Glucose 101 H Calcium 9.6 Magnesium 1.9 Total Bilirubin 0.5 AST 32 ALT 11 Alkaline Phosphatase 72 Total Creatine Kinase 121 CK-MB (CK-2) 0.87 CK-MB (CK-2) Rel Index 0.7 L Troponin I < 0.012 Total Protein 8.0 Albumin 4.6 Globulin 3.4 Albumin/Globulin Ratio 1.4 Lipase 73 TSH 1.15 Thyroxine (T4) 8.94 Nasal Screen MRSA (PCR) 05/10/19 14:50 WBC RBC Hgb Hct MCV MCH MCHC RDW Plt Count Neut % (Auto) Lymph % (Auto) [place] % (Auto) Eos % (Auto) Baso % (Auto) Neut # (Auto) Lymph # (Auto) Alexander # (Auto) Eos # (Auto) Baso # (Auto) Sodium Potassium Chloride Carbon Dioxide BUN Creatinine Estimated GFR BUN/Creatinine Ratio Glucose Calcium Magnesium Total Bilirubin AST ALT Alkaline Phosphatase Total Creatine Kinase CK-MB (CK-2) CK-MB (CK-2) Rel Index Troponin I Total Protein Albumin Globulin Albumin/Globulin Ratio Lipase TSH Thyroxine (T4) Nasal Screen MRSA (PCR) Negative for mrsa Assessment & Plan Assessment & Plan narrative: Ms Beckham is a 48-year-old female with a remote history of lymphoma who presented with palpitations and is admitted with an episode nonsustained ventricular tachycardia noted on a Holter monitor. 1. Ventricular tachycardia, nonsustained -unclear etiology at this time but likely the source of her palpitations. Her electrolytes are unremarkable and her TSH is within normal limits. This could be underlying ischemia and she does need a stress test but this could potentially be done as an outpatient. We will start her on metoprolol and see if she has any further events. If she does not she can be likely discharged home with a plan for outpatient stress test to be done next week and then she should follow up with her traveling inventory associate. We will order an echocardiogram to see if there are any structural abnormalities as well. Timing of her stress test depends on the frequency of her arrythmia at this time, if improvement with the beta rose mary she can be safely discharged home, however she may need to stay longer if she has continued episodes of NSVT on telemetry. - A1c, Lipid panel - continue metoprolol XL 25 mg daily - continue telemetry Dispo: admit under observation status DVT: Lovenox daily. Code: Full
[2019-05-11 04:46] VITALS: BP 90/54; PULSE 70; RESP 18; TEMP 36.8; O2SAT 96
[2019-05-11 05:20] LABS: Add Manual Diff / Slide Review NO; Basophils Absolute Auto 100 /uL (0-100); Basophils Percent Auto 1.2 % (0-2); Eosinophils Absolute Auto 200 /uL (0-450); Eosinophils Percent Auto 2.7 % (2-4); Hematocrit 34.3 % (36-46); Hemoglobin 11.4 g/dL (12.0-16.0); Lymphocytes Absolute Auto 1700 /uL (1100-4500); Lymphocytes Percent Auto 30.4 % (25-40); Mean Corpuscular HGB Conc 33.3 % (30-36); Mean Corpuscular Volume 90.1 fL (80-100); Monocytes Absolute Auto 600 /uL (0-900); Monocytes Percent Auto 11.4 % (3-14); Neutrophils Absolute Auto 3000 /uL (1500-7000); Neutrophils Percent Auto 54.3 % (50-75); Platelet Count 277 X10^3/uL (150-400); Red Blood Cell Count 3.81 X10^6/uL (4.0-5.2); Red Cell Distribution Width 13.2 % (11.6-14.8); White Blood Cell Count 5.6 X10^3/uL (4.5-11.0)
[2019-05-11 05:31] LABS: Hemoglobin A1C% w Est Avg Glu 5.6 % (4.0-6.0)
[2019-05-11 05:34] LABS: Blood Urea Nitrogen 14 mg/dL (7-17); Calcium 8.9 mg/dL (8.4-10.2); Carbon Dioxide 28 mmol/L (22-32); Chloride 103 mmol/L (98-107); Cholesterol 153 mg/dL (140-199); Estimated Glomerular Filt Rate > 60.0 mL/min (>60); Glucose 101 mg/dL (70-100); HDL Cholesterol 44 mg/dL (40-60); HEMOLYSIS < 15 (0-50); LDL Cholesterol Calculated 98 mg/dL (<100); Magnesium 1.8 mg/dL (1.6-2.3); Potassium 4.4 mmol/L (3.4-5.1); Sodium 140 mmol/L (137-145); Triglycerides 55 mg/dL (35-150)
[2019-05-11 07:00] VITALS: O2SAT 96
[2019-05-11 08:00] VITALS: BP 112/68; PULSE 72; RESP 16; TEMP 36.6; O2SAT 99
[2019-05-11 09:21] VITALS: PULSE 72
[2019-05-11] MEDS: METOPROLOL ER 25 MG TABLET PO (09:21)
--- NOTE | 2019-05-11 11:28 | P.DS_ITS ---
History of Present Illness History of Present Illness Date Patient Seen: 05/11/19 Time Patient Seen: 08:20 Chief complaint: irregular holter monitor reading Narrative: Ms. Beckham is a 48-year-old female with remote history of lymphoma who presented with an arrhythmia noted on a Holter monitor. Patient has been complaining of palpitations on and off for the past few years she says but have been increasing more recently, now occurring at least daily. Symptoms usually last for anywhere from a few minutes to as long as a couple of hours. She feels palpitations, dizziness, and mild nausea. She was seen by her primary care doctor and was diagnosed with anxiety and was started on propranolol us but still continued to have symptoms. She was seen by house director who started a Holter monitor. She had a few episodes over the past few days, and this morning she was called to come into the emergency room after an episode of ventricular tachycardia noted on her Holter monitor. She currently denies any chest pain, shortness of breath, and her last palpitations were this morning. She denies any recent fever, chills, nasal congestion, abdominal pain, vomiting, diarrhea, dysuria. In the ED she was asymptomatic, however they spoke with the house director over at [facility] who recommend that she start 25 mg of metoprolol and to monitor her after initiation of this medication. Further recommended a in echocardiogram and if she is still here a stress test on Monday. Discharge Providers Provider Date of admission: 05/10/19 14:19 Discharge Date: 05/11/19 Primary care physician: Argenis Madison MD Discharge provider: Ian Wayne DO Summary Hospital Course Hospital Course: Ms Beckham is a 48-year-old female with a remote history of ly mphoma who presented with palpitations and is admitted with an episode nonsustained ventricular tachycardia noted on a Holter monitor. She was admitted overnight for observation as per recommendations by her house director. She had no events on telemetry after starting metoprolol. She endorsed some mild palpitations, but no events were noted on telemetry during these episodes. 1. Ventricular tachycardia, nonsustained -no events on telemetry noted overnight. Discussed with on-call house director at [facility] who agreed the patient can be discharged home given no events on telemetry. [facility] Cardiology is also planning to his schedule her for a outpatient stress test on Monday. She will be provided with the prescription for 30 days of metoprolol XL 25 mg daily, and follow up with the house director as outpatient. Her lipid panel, blood glucose, and TSH were unremarkable. Exam Vital Signs (past 8 hours): - 05/11/19 04:46 05/11/19 07:00 05/11/19 08:00 Temperature 98.2 F 97.8 F Pulse Rate 70 72 Respiratory Rate 18 16 Blood Pressure 90/54 L 112/68 Pulse Oximetry 96 96 99 05/11/19 09:21 Temperature Pulse Rate 72 Respiratory Rate Blood Pressure Pulse Oximetry Oxygen Delivery Method Room Air Narrative Exam Narrative: GENERAL APPEARANCE: Well developed, well nourished, in no acute distress. SKIN: Inspection of the skin reveals no rashes, ulcerations or petechiae. HEENT: The sclerae were anicteric and conjunctivae were pink and moist. Extraoc ular movements were intact and pupils were equal, round with normal accommodation. External inspection of the ears and nose showed no scars, lesions, or masses. Lips, teeth, and gums showed normal mucosa. The oral mucosa, hard and soft palate, tongue and posterior pharynx were unremarkable. NECK: Supple and symmetric. There was no thyroid enlargement, and no tenderness, or masses were felt. CHEST: Normal AP diameter and normal contour without any kyphoscoliosis. LUNGS: Auscultation of the lungs revealed no wheezes, rhonchi, or rales. CARDIOVASCULAR: There was a regular rate and rhythm without any murmurs, gallops, rubs. Peripheral pulses were 2+ and symmetric. ABDOMEN: Soft and nontender with normal bowel sounds. No ascites was noted. MUSCULOSKELETAL: There was no tenderness or effusions noted. Muscle strength and tone were normal. EXTREMITIES: No cyanosis, clubbing or edema. NEUROLOGIC: Alert and oriented x 3. Normal affect. Gait was normal. Strength is +5/5 in the Upper Extremities and Lower Extremities Bilaterally. Sensation to touch was normal. Objective Labs Result Diagrams: 05/11/19 04:38 05/11/19 04:38 Labs: Laboratory Results - last 24 hr 05/10/19 05/10/19 05/10/19 11:14 11:14 14:50 WBC RBC Hgb Hct MCV MCH MCHC RDW Plt Count Neut % (Auto) Lymph % (Auto) [place] % (Auto) Eos % (Auto) Baso % (Auto) Neut # (Auto) Lymph # (Auto) [place] # (Auto) Eos # (Auto) Baso # (Auto) Sodium 140 Potassium 4.6 Chloride 103 Carbon Dioxide 26 BUN 15 Creatinine 0.60 Estimated GFR > 60.0 BUN/Creatinine Ratio 25.0 H Glucose 101 H Hemoglobin A1c Calcium 9.6 Magnesium 1.9 Total Bilirubin 0.5 AST 32 ALT 11 Alkaline Phosphatase 72 Total Creatine Kinase 121 CK-MB (CK-2) 0.87 CK-MB (CK-2) Rel Index 0.7 L Troponin I < 0.012 Total Protein 8.0 Albumin 4.6 Globulin 3.4 Albumin/Globulin Ratio 1.4 Triglycerides Cholesterol LDL Cholesterol, Calc HDL Cholesterol Lipase 73 TSH 1.15 Thyroxine (T4) 8.94 Nasal Screen MRSA (PCR) Negative for mrsa 05/11/19 05/11/19 05/11/19 04:38 04:38 04:38 WBC 5.6 RBC 3.81 L Hgb 11.4 L Hct 34.3 L MCV 90.1 MCH 30.0 MCHC 33.3 RDW 13.2 Plt Count 277 Neut % (Auto) 54.3 Lymph % (Auto) 30.4 [place] % (Auto) 11.4 Eos % (Auto) 2.7 Baso % (Auto) 1.2 Neut # (Auto) 3000 Lymph # (Auto) 1700 [place] # (Auto) 600 Eos # (Auto) 200 Baso # (Auto) 100 Sodium 140 Potassium 4.4 Chloride 103 Carbon Dioxide 28 BUN 14 Creatinine 0.70 Estimated GFR > 60.0 BUN/Creatinine Ratio 20.0 Glucose 101 H Hemoglobin A1c 5.6 Calcium 8.9 Magnesium 1.8 Total Bilirubin AST ALT Alkaline Phosphatase Total Creatine Kinase CK-MB (CK-2) CK-MB (CK-2) Rel Index Troponin I Total Protein Albumin Globulin Albumin/Globulin Ratio Triglycerides 55 Cholesterol 153 LDL Cholesterol, Calc 98 HDL Cholesterol 44 Lipase TSH Thyroxine (T4) Nasal Screen MRSA (PCR) Discharge Plan Discharge Plan Patient Disposition: Home Discharge comment: You were admitted to the hospital for an episode of ventricular tachycardia noted on a heart monitor. In the hospital you had no episodes or abnormal rhythms on heart monitoring. Your started on a medication called metoprolol. You should continue this medication and follow up with the cardiology office regarding your outpatient stress test on Monday. Please con tinue to wear your event monitor into you follow up with the house director. Discharge Med Rec/Prescriptions Prescriptions: New metoprolol succinate 25 mg Tablet Extended Release 24 Hr 25 mg PO DAILY 30 Days Qty: 30 RF: 0 Continued ibuprofen [Advil] 200 mg Tablet 200 mg PO PRN PRN (Reason: Back Pain) RF: 0 Discontinued propranolol 60 mg capsule,extended release 24 hr 60 mg PO DAILY RF: 0 Follow up/Referrals: Argenis Madison MD [Primary Care Provider] - Provider Discharge Instructions Diet: Diet as Tolerated Activity: As tolerated Visit Report/Discharge Packet Instructions: DI for Arrhythmias, DI for Ventricular Tachycardia Visit Report Forms: Stroke Signs & Symptoms Discharge Data Primary Care Provider: Argenis Madison Attending Provider: Ian Wayne Admit Date/Time: 05/10/19 14:19
--- NOTE | 2019-05-11 11:29 | CM.DANOTE ---
DCP/Assessment: Reviewed chart. Pteint is a 48yr old female admitted to . with irregular halter monitor reading. PCP is Dr. Downing. Primary payor is 1)[employer]. Met with patient explained CM/SW role. Patient alert and oriented sitting in chair at time of visit. Patient reports that she is completely I in all ADL's. Patient resides with her spouse in [place]. Patient works as ROUND [employer] at [employer]. Patient does not anticipate any d/c planning needs at this time. RN confirms. P: Anticipate home when stable. CM team to continue to follow. MAURICIO Perez Discharge Planning/Care Management CM Discharge Assessment Start: 05/11/19 11:27 Freq: Status: Active Protocol: Document 05/11/19 11:27 KJS (Rec: 05/11/19 11:29 KJS [id number]) Discharge Planning Assessment Assigned Coder MAURICIO Perez Contact Information Dionisio Dotson (spouse) Advance Directives? No History Provided By Patient,Medical Record Has Patient been admitted in last 30 No days? Prior Living Arrangements House Household Members spouse Type of transporation used prior to Drives own vehicle admit Independent with ADL's Yes Is patient alert and oriented? Yes Caregiver for Another No Transportation Arrangement Family to provide transport. Referrals Initiated None needed Whiteboard Updated in Patient Room with Yes name and ext. # of Coder Review Status In Process Next Review Type Continued Stay Review
--- NOTE | 2019-05-11 12:23 | PC.NURSE ---
AM shift Pt reports mild palpitations this AM prior to rec metoprolol. No dizziness. Pt up indep in room. Per Dr Wayne, consult with cardiology and then likely d/c with event monitor in place. D/c written, reviewed with Pt, all questions answered, picking Pt up. Follow up tomorrow with cardiology.
== END 2019-05-11 12:26 | disposition home or self-care (01) ==
LOC: ED 13:37 → AC 14:20 → ICU 14:51
PROVIDERS: Admitting Provider Internal Medicine; Emergency Provider Emergency Medicine; PCP Internal Medicine Cardiovascular Disease; Visit Provider Internal Medicine
DX: I47.2 Ventricular tachycardia (principal); I49.9 Cardiac arrhythmia, unspecified
CPT/HCPCS: 36415; 36591; 80048; 80053; 80061; 82550; 82553; 83036; 83690; 83735; 84436; 84443; 84484; 85025; 87797; 93005; 96360; 96361; 99282; 99284; G0378

== ENCOUNTER → 2019-06-26 09:35 | Outpatient (CLI) | payer BC, SELFPAY ==
[2019-05-10 16:46] VITALS: BMI 35.6
--- NOTE | 2019-06-26 | DI.MRI.S_ITS ---
PROCEDURE: MR PELVIS WO CON INDICATIONS: Sacroccygeal disorder TECHNIQUE: Noncontrast axial and oblique coronal T1 spin echo and STIR through the sacroiliac joints. COMPARISON: [facility] Outside Film, MR, MR LUMBAR SPINE WITHOUT CONTRAST, 05/15/2019, 13:02. FINDINGS: Image quality: Diagnostic. Bones: The sacroiliac joints demonstrate mild narrowing on the right with small periarticular foci of subchondral edema compatible with mild degenerative change. No definite periarticular bone marrow edema to suggest active sacroiliitis. No bony ankylosis. There is asymmetric fatty marrow within the visualized right iliac bone with saturation on STIR sequences. There are periarticular curvilinear areas of hypointense T1 signal and mildly hyperintense T2 signal in the visualized right ilium. The findings likely represent fat necrosis. There is facet joint arthropathy within the visualized lower lumbar spine, left greater than right, including moderate degeneration of the lumbosacral junction. Soft tissues: No presacral masses. Visualized bowel loops appear normal in caliber and wall thickness. No pathologic free pelvic fluid. IMPRESSION: 1. Mild asymmetric degenerative changes along the right sacroiliac joint. 2. Asymmetric fat marrow signal in the visualized right ilium with periarticular curvilinear regions of low T1 and high T2 signal as described suggestive of fat necrosis. 3. Facet arthropathy within the visualized lower lumbar spine including moderate degeneration on the left at the lumbosacral junction. Dictated by: Juan José Price M.D. on 06/26/2019 at 15:12 Approved by: Juan José Price M.D. on 06/26/2019 at 15:20
== END ==
PROVIDERS: PCP Family Medicine; Visit Provider Family Medicine
DX: M53.3 Sacrococcygeal disorders, not elsewhere classified (principal); M47.818 Spondylosis without myelopathy or radiculopathy, sacral and sacrococcygeal region; M47.817 Spondylosis without myelopathy or radiculopathy, lumbosacral region; M47.816 Spondylosis without myelopathy or radiculopathy, lumbar region
CPT/HCPCS: 72195

== ENCOUNTER → 2024-01-01 16:41 | Outpatient (CLI) | payer OTHER, SELFPAY ==
[2019-05-10 16:46] VITALS: BMI 35.6
--- NOTE | 2024-01-01 16:44 | DI.US.S_ITS ---
PROCEDURE: US THYROID INDICATIONS: Nontoxic multinodular goiter TECHNIQUE: Real-time scanning was performed of the thyroid gland, with image documentation. COMPARISON: [facility], [facility], US THYROID, 05/23/2016, 13:22. [facility], [facility], US THYROID, 07/02/2015, 15:09. FINDINGS: Thyroid: Right lobe measures 0.4 x 2.0 x 2.4 cm. Left lobe measures 3.6 x 1.3 x 1.9 cm. Isthmus is 3 cm thick. Echotexture is homogeneous. Nodule number: 1 Location: Right inferior Size: 3.7 x 3.2 x 2.2 cm compared to 2.1 x 2.2 x 3.6 cm. Composition: Solid Echogenicity: Hypoechoic Shape: wider than tall. Margins: Smooth Echogenic foci: None Total points: 4 ACR TI-RADS category: 4 IMPRESSION: Category 4 nodule which is demonstrated interval increase in size since 2016. Given 8 years since prior exam, interval growth is likely benign. Recommend 1 year interval follow-up. ACR TI-RADS definitions and recommendations: TI-RADS 1 (benign): 0 points. FNA not needed. TI-RADS 2 (not suspicious): 2 points. FNA not needed. TI-RADS 3 (mildly suspicious): 3 points. * FNA if 2.5 cm or larger, follow up if 1.5 cm or larger (at 1, 3, and 5 years). TI-RADS 4 (moderately suspicious): 4-6 points. * FNA if 1.5 cm or larger, follow up if 1 cm or larger (at 1, 2, 3, and 5 years). TI-RADS 5 (highly suspicious): 7 points or more. * FNA if 1 cm or larger, follow up if 0.5 cm or larger (every year for 5 years). Dictated by: Britta Marshall M.D. on 01/02/2024 at 12:59 Approved by: Britta Marshall M.D. on 01/02/2024 at 13:51
== END ==
PROVIDERS: PCP Family Medicine; Referring Provider Otolaryngology; Visit Provider Otolaryngology
DX: E04.1 Nontoxic single thyroid nodule (principal)
CPT/HCPCS: 76536

== ENCOUNTER → 2025-01-28 15:42 | Outpatient (CLI) | payer OTHER, SELFPAY ==
[2019-05-10 16:46] VITALS: BMI 35.6
--- NOTE | 2025-01-28 15:44 | DI.US.S_ITS ---
PROCEDURE: US THYROID INDICATIONS: NODULES TECHNIQUE: Real-time scanning was performed of the thyroid gland, with image documentation. COMPARISON: [facility], [place], US THYROID, 01/01/2024, 17:10. FINDINGS: Thyroid: Right lobe measures 4.7 x 2.5 x 2.4 cm. Left lobe measures 4.3 x 1.2 x 1.5 cm. Isthmus is 0.4 cm thick. Echotexture is heterogeneous. Nodule number: 1 Location: Right inferior Size: 3.2 x 3.0 x 2.2, previously 3.7 x 3.2 x 2.2 cm. Composition: Solid Echogenicity: Hypoechoic Shape: wider than tall. Margins: Indistinct Echogenic foci: Punctate Total points: 7 ACR TI-RADS category: TI-RADS 5 Nodule number: 2 Location: Right mid Size: 0.9 x 0.7 x 0.8 cm, previously cm 0.9 x 0.9 x 0.9. Composition: Solid Echogenicity: Isoechoic Shape: wider than tall. Margins: Indistinct Echogenic foci: None Total points: 3 ACR TI-RADS category: TI-RADS 3 Nodule number: 3 Location: Left inferior Size: 1.3 x 1.0 by 0.8 cm, new since prior. Composition: Solid Echogenicity: Hypoechoic Shape: wider than tall. Margins: Ill-defined Echogenic foci: None Total points: 4 ACR TI-RADS category: TI-RADS 4 IMPRESSION: Right inferior 3.2 cm TI-RADS 5 nodule which meets imaging criteria for ultrasound-guided FNA based on ACR guidelines below. Left inferior 1.3 cm TI-RADS 4 nodule. Recommend follow-up ultrasound in 1 year based on ACR guidelines below. Right mid 0.9 cm TI-RADS 3 nodule. No imaging follow-up recommended based on ACR guidelines below. ACR TI-RADS definitions and recommendations: TI-RADS 1 (benign): 0 points. FNA not needed. TI-RADS 2 (not suspicious): 2 points. FNA not needed. TI-RADS 3: 3 points. * FNA if 2.5 cm or larger, follow up if 1.5 cm or larger (at 1, 3, and 5 years). TI-RADS 4: 4-6 points. * FNA if 1.5 cm or larger, follow up if 1 cm or larger (at 1, 2, 3, and 5 years). TI-RADS 5: 7 points or more. * FNA if 1 cm or larger, follow up if 0.5 cm or larger (every year for 5 years). Approved by: Chanel Bernard M.D.,Ph.D. on 01/29/2025 at 19:36
== END ==
PROVIDERS: PCP Otolaryngology; Referring Provider Family Medicine; Visit Provider Otolaryngology
DX: E04.2 Nontoxic multinodular goiter (principal)
CPT/HCPCS: 76536

== ENCOUNTER → 2025-04-28 12:14 | Outpatient (CLI) | payer OTHER, SELFPAY ==
[2025-03-26 14:39] VITALS: BMI 35.6
--- NOTE | 2025-04-28 | PATH_ITS ---
Note [facility] Accession Number: [id number] TESTS RESULT FLAG UNITS REF RANGE LAB Clinician Provided Cytology Information No. of containers..02 Previously Prepared Cytology Slide 35 Unknown Storage/container code(s) Source: RIGHT THYROID NODULE #1 DIAGNOSIS: RIGHT THYROID NODULE #1 NEGATIVE FOR MALIGNANT CELLS. BETHESDA CATEGORY II. SPECIMEN CONSISTS OF FEW BENIGN FOLLICULAR CELL GROUPS, COLLOID, AND BLOOD. THIS PATTERN IS MOST CONSISTENT WITH A COLLOID NODULE. Pathologist ICD10: E04.1 Signed out by: Yumiko Perea MD, Pathologist NPI- [id number] Performed by: Qasim Yuan, Furnace Builder ([facility]) Gross description: 30 CC, RED, CLEAR RECIEVED: IN CYTOLYT WITH 6 ALCOHOL FIXED AND 6 QUICK STAINED SLIDES ALSO 1 RNA VIAL WILL ON 09-05-2026.VO /VDU 04/29/2025 0426 Local FLAG LEGEND: L-Low Normal,H-High Normal,LL-Alert Low,HH-Alert High <-Panic Low,>-Panic High,A-Abnormal,AA-Critical Abnormal Performed at: 01 [address] [facility], [place] [address] Juan José Queen MD, Performed at: [address] [facility], [place], [place] [id number] MD Juan José Queen MD Phone: [phone]
--- NOTE | 2025-04-28 12:19 | DI.US.S_ITS ---
PROCEDURE: US FINE NEEDLE ASPIRATION INDICATIONS: RIGHT THYOID NODULE TECHNIQUE: The indications, alternatives, benefits, risks, and complications of the procedure were explained to the patient. Written informed consent was obtained and placed in the chart. The thyroid region was examined sonographically and a site was chosen for ultrasound guided percutaneous sampling. The skin was prepared and draped in the usual fashion, and anesthetized with 1% lidocaine infiltrated from the skin down to the thyroid gland. Multiple passes were then performed, with contents emptied into an appropriate pathology specimen container. A bandage was applied to the area of access at completion of the study. COMPARISON: None. FINDINGS: Location(s) of lesion(s) sampled: Right thyroid [place]: 25 gauge hypodermic needles. Number of passes: 6 Medications: 1% lidocaine for local anaesthesia. Complications: None. IMPRESSION: Successful ultrasound-guided thyroid nodule fine needle aspiration, with cytology results pending. Please see chart below for management recommendations based on cytology results. [place] [facility] ReportingRecommendationsNon-diagnostic* Repeat US-guided FNA, with on-site cytology evaluation if possible. * Repeated non-diagnostic nodules without high suspicion US features: close observation vs surgical consult. * Consider surgery if nodule has high suspicion US features, grows >20% in 2 dimensions on followup, or patient has clinical risk factors for malignancy. Benign* If nodule has high suspicion US features: repeat US and FNA within 12 months. * If nodule has low to intermediate suspicion US features: repeat US at 12-24 months. If nodule grows (20% increase in at least 2 dimensions, with minimal increase of 2 mm or >50% change in volume), or development of new suspicious US features, then repeat FNA or continue followup. * If nodule has very low suspicion US features: followup US at >24 months. Atypia of undetermined significance, follicular lesion of undetermined significanceRepeat FNA, molecular testing, followup US, or surgical consult.Follicular neoplasm, suspicious for follicular neoplasmSurgical consult; also consider molecular testing. Suspicious for malignancySurgical consult.MalignantSurgical consult. Dictated by: Dann Delgado M.D. on 04/28/2025 at 13:56 Approved by: Dann Delgado M.D. on 04/28/2025 at 13:56
== END ==
PROVIDERS: PCP Family Medicine; Referring Provider Otolaryngology; Visit Provider Otolaryngology
DX: E04.2 Nontoxic multinodular goiter (principal)
CPT/HCPCS: 10005

== ENCOUNTER 2025-05-29 07:48 | Day surgery (SDC) | payer OTHER, SELFPAY ==
[2025-03-26 14:39] VITALS: BMI 35.6
--- NOTE | 2025-05-29 | PATH_ITS ---
[facility] Accession Number: [id number] No. of containers..03 Tissue . 01 Material submitted: . PART A: stomach - ANTRAL PART B: stomach - GASTRIC POLYP PART C: esophagus - ESOPHAGUS . 01 Diagnosis: A. STOMACH, ANTRUM, BIOPSY: Histologically unremarkable antral and oxyntic mucosa. Negative for Helicobacter organisms by H/E stain. Negative for intestinal metaplasia, dysplasia, and malignancy. . B. GASTRIC POLYP, BIOPSY: Fundic gland polyp. Negative for Helicobacter organisms by H/E stain. Negative for intestinal metaplasia, dysplasia, and malignancy. . C. ESOPHAGUS, BIOPSY: Squamocolumnar junctional mucosa with mild reflux changes. Negative for intestinal metaplasia, dysplasia, and malignancy. [facility] 06/10/2025 1831 Local . 01 Electronically signed: . Casi Falk DO, Pathologist NPI- [id number] . 01 Gross description: . Received are three formalin-filled containers each labeled with the patient's name. . A. In a container labeled antral biopsy, are two fragments of avalos, soft tissue which range in size from 0.2 x 0.2 x 0.2 cm to 0.3 x 0.3 x 0.2 cm. All fragments are totally submitted in cassette A1. B. In a container labeled gastric polyp, is one fragment of avalos, soft tissue which measures 0.3 x 0.3 x 0.3 cm. The specimen is totally submitted in cassette B1. C. In a contaqiner labeled esophageal biopsies, are two fragments of varela-avalos soft tissue which range in size from 0.2 x 0.2 x 0.2 cm to 0.3 x 0.2 x 0.2 cm. All fragments are totally submitted in cassette C1. ([id number]) /[facility] 06/06/2025 0022 Local . 01 Pathologist provided ICD-10: K21.9 . 01 CPT . 758112, 246571, 954147 Specimen Comment: A courtesy copy of this report has been sent to [facility] Pathology Performed at: [address] [address], [place], [place] [id number] MD Juan José Queen MD Phone: [phone]
--- NOTE | 2025-05-29 05:49 | P.HP_ITS ---
History of Present Illness History of Present Illness Date Patient Seen: 05/29/25 Time Patient Seen: 05:49 Chief [place] [facility] [place]arrative: Patient presents for EGD/colonoscopy evaluation. 54yo, no prior screening colonoscopy exam. Complains of rectal pain which comes and goes. She wonders if she has hemorrhoids. No bleeding. Family history negative for colon cancer. She has constipation off and on that is diet related. When she was traveling in [place] and eating healthy food her constipation was improved. She is from [facility]. C/O GERD, more acid pain in epigastrium. Has been on omeprazole 40 mg for many years. She has tried to lower the dose or discontinue PPI but her symptoms return. Sometimes is awakened with cough with daytime napping, no nocturnal cough. No GI contents on pillow. She can sleep flat without symptoms. She had an EGD in [facility] in 2005 that was reportedly normal. Specifically she was negative for H pylori and has also had a negative breath test since. She feels that there is an epigastric discomfort that is alleviated with food that makes her want to eat to alleviate the pain. She took Ozempic for several months and lost 10 lb but is no longer taking this. She is currently being evaluated for thyroid symptoms. REPLACED BY [facility] Medical History (Updated 03/31/25 @ 16:29 by Harvey Ruelas MD) Palpitations Social History household members: spouse Meds Home Medications and Allergies Home Medications ?Medication ?Instructions ?Recorded ?Confirmed ?Type ibuprofen 200 mg tablet (Advil) 200 mg PO PRN PRN Back Pain 05/10/19 03/31/25 History escitalopram oxalate 5 mg tablet 5 mg PO DAILY 5 03/31/25 History metoprolol succinate 25 mg 50 mg PO DAILY 03/31/2507/15 History tablet,extended release 24 hr Allergies Allergy/AdvReac Type Severity Reaction Status Date / Time No Known Drug Allergies Allergy Verified 03/31/25 16:03 Exam Narrative Exam Narrative: Const General: healthy appearing, comfortable and no acute distress Orientation: alert and oriented x3 HENMT Head: normal to inspection Eyes Visual Alford: normal visual alford by confrontation Conjunctivae: conjunctivae normal Sclera: sclerae normal EOM: EOM intact bilaterally Resp Effort & Inspection: normal respiratory effort and able to speak in complete sentences Cardio Rate: regular rate GI Palpation: soft (nontender) Extrem Other: without pitting edema Assessment & Plan Assessment and plan (1) Encounter for screening colonoscopy: Status: Acute (2) GERD (gastroesophageal reflux disease): Qualifiers: Esophagitis presence: esophagitis presence not specified Qualified Code(s): K21.9 - Gastro-esophageal reflux disease without esophagitis Status: Acute Plan Plan EGD/colonoscopy. The risks, benefits and options regarding the procedure were explained to the patient in detail. Risk discussion included but not limited to: bleeding, perforation, unable to reach cecum, missed lesion. The patient was encouraged to ask questions and they were answered to their satisfaction. The patient understands and is agreeable to proceed. Time-Based Coding :: [TOTAL MINUTES] spent with patient and on the chart (including review of chart, obtaining history, exam, reviewing outside data, placing orders, documenting exam and treatment plan, and counseling patient) on [DATE]. PROFEE Senior Biostatistician/Group Leader Document charge(s): Yes Charge Codes Inpatient/observation care including admit and discharge same day: [id number]
[2025-05-29 08:30] VITALS: BP 133/78; PULSE 67; RESP 16; TEMP 36.6; O2SAT 99
[2025-05-29] MEDS: LACTATED RINGERS 1,000 ML 42 ML IV (08:45)
--- NOTE | 2025-05-29 09:13 | P.OP.EGD&C_ITS ---
Operative Date/Time/Diagnoses Date of procedure: 05/29/25 Time of procedure: 09:58 Pre-op diagnosis: GERD, screening colonoscopy Post-op diagnosis: other (LA Grade B esophagitis, gastric polyps) Procedure & Clinicians Study performed: EGD, colonoscopy, biopsy Same procedure(s) as scheduled: Yes Indications: 54yo F, h/o GERD, screening colonoscopy Surgeon: Harvey Ruelas Anesthesia Type: MAC +/- Procedure Notes SCOAP/Timeout: Performed Procedure in detail: EGD Informed consent was obtained. The procedure, its risks, benefits, and alternatives were discussed. Patient understood and agreed to proceed. The patient was placed in the left lateral decubitus position with head elevated. Sedation given per anesthesia. The video endoscope was inserted into the vamsi pharynx and guided under direct vision into the esophagus, stomach, and duodenum which were carefully examined. The scope was retroflexed to examine the hiatus and gastroesophageal junction. Antral biopsies were obtained for Helicobacter pylori. The patient tolerated the procedure very well. There were no apparent complications. Significant EGD findings: Z-line noted at: 35cm LA Grade B esophagitis, biopsies taken to r/o Lainez's No hiatal hernia or esophageal stricture Multiple gastric polyps appear to be PPI effect, one biopsied for sampling Mild antral gastritis No ulcers noted in stomach or duodenum Normal duodenum Colonoscopy Patient placed in left lateral recumbent position. Time out was performed. Procedural sedation was administered by anesthesia. Examination began with a thorough inspection of the perianal area. There was no evidence of fissures, fistulae, external hemorrhoids or cutaneous malignancy. The colonoscope was then placed into the rectum and the lumen was insufflated with carbon dioxide. The scope was carefully advanced forward. Ultimately the cecum was intubated and confirmed by identification of the ileocecal valve, the appendiceal orifice and the confluence of the taenia. The scope was then slowly withdrawn examining the colon thoroughly in all directions. In the rectum, retroflexion of the scope was performed for inspection of the distal rectum and anal canal. ?Significant colonoscopy findings: ?1. Quality of the preparation-good, [place] 2-3, improved with irrigation/suction 2. Patient only took half of prep, but we were able to reach cecum, small lesions could be missed 3. No polyps or diverticulae seen, no mass or stricture Scope withdrawal time: 8 minutes Findings: gastritis and other findings (esophagitis) Specimen(s): other (Antral and esophageal biopsies, gastric polyp) Complications: none Impression: LA Grade B esophagitis, biopsies pending Gastric polyps likely due to PPI effect, one polyp biopsied for sampling Mild antral gastritis, biopsies taken to r/o H pylori Normal screening colonoscopy within limits of prep Post-procedure Recommendations: Will call with biopsy results Plan for aftercare: PACU then home Follow up: as needed Disposition: PACU
[2025-05-29 10:00] VITALS: BP 112/57; PULSE 73; RESP 16; TEMP 36.1; O2SAT 100
[2025-05-29 10:05] VITALS: BP 115/60; PULSE 68; RESP 14; O2SAT 98
[2025-05-29 10:10] VITALS: BP 111/65; PULSE 66; RESP 16; O2SAT 99
[2025-05-29 10:15] VITALS: BP 112/66; PULSE 71; RESP 14; O2SAT 98
[2025-05-29 10:18] VITALS: BP 115/61; PULSE 70; RESP 14; TEMP 36.2; O2SAT 98
== END 2025-05-29 10:59 | disposition home or self-care (01) ==
PROVIDERS: PCP Family Medicine; Referring Provider Family Medicine; Visit Provider Surgery
PROC: 0DJ08ZZ Inspection of Upper Intestinal Tract, Via Natural or Artificial Opening Endoscopic (ICD-10-PCS; CPT 43239; principal; 2025-05-29 08:45)
PROC: 0DJD8ZZ Inspection of Lower Intestinal Tract, Via Natural or Artificial Opening Endoscopic (ICD-10-PCS; CPT 45378; 2025-05-29 08:45)
DX: Z12.11 Encounter for screening for malignant neoplasm of colon (principal); K21.9 Gastro-esophageal reflux disease without esophagitis; K20.90 Esophagitis, unspecified without bleeding; K29.70 Gastritis, unspecified, without bleeding; K31.7 Polyp of stomach and duodenum
CPT/HCPCS: 43239; 45378; J2704; J7120

== ENCOUNTER → 2025-07-29 07:07 | Outpatient (CLI) | payer SELFPAY ==
[2025-03-26 14:39] VITALS: BMI 35.6
--- NOTE | 2025-07-29 07:08 | DI.US.S_ITS ---
PROCEDURE: US ABDOMEN LIMITED INDICATIONS: RIGHT UPPER QUADRANT PAIN/NAUSEA. HISTORY OF SLUDGE. TECHNIQUE: Real-time scanning was performed of the abdominal and retroperitoneal organs, with image documentation. COMPARISON: None. FINDINGS: Liver: Liver is diffusely increased in echogenicity. No focal hepatic abnormalities identified. Normal hepatic size. Gallbladder: Multiple gallstones present. No gallbladder wall thickening or pericholecystic fluid. Negative sonographic Hunter sign. Biliary ducts: Intrahepatic bile ducts are non-dilated. Extrahepatic bile duct caliber measures 6.9 mm. Normal is 6-7 mm or less in diameter, or 10 mm or less post-cholecystectomy. Pancreas: Not well seen. Right kidney: Hypoechoic mass along the superior medial margin of the right kidney measuring 1.5 x 2.1 x 2.3 cm. Miscellaneous: No free abdominal fluid. IMPRESSION: 1. Increased hepatic echogenicity likely related to hepatic steatosis; however other hepatocellular disease processes cannot be excluded and clinical correlation is recommended. 2. Cholelithiasis without secondary signs for cholecystitis. 3. Solid-appearing hypoechoic mass along the superior medial margin of the right kidney measuring 2.3 cm which may represent a adrenal mass; however solid upper pole renal mass cannot be excluded. Recommend renal protocol CT or MRI for further assessment. Dictated by: Jono Penny RR Interpreted: Bassam Knapp MD on 07/29/2025 at 10:35 Transcribed by: ARIAS on 07/29/2025 at 10:39 Approved by: Bassam Knapp M.D. on 07/29/2025 at 13:15
== END ==
PROVIDERS: PCP Family Medicine; Referring Provider Family Medicine; Visit Provider Surgery
DX: K80.20 Calculus of gallbladder without cholecystitis without obstruction (principal); N28.89 Other specified disorders of kidney and ureter; R10.11 Right upper quadrant pain
CPT/HCPCS: 76705

== ENCOUNTER → 2025-08-08 15:01 | Outpatient (CLI) | payer OTHER, SELFPAY ==
[2025-03-26 14:39] VITALS: BMI 35.6
--- NOTE | 2025-08-08 15:02 | DI.MRI.S_ITS ---
PROCEDURE: MR ABDOMEN ADRENAL PROTOCOL INDICATIONS: mass;MRI adrenal protocol for further assessment TECHNIQUE: Coronal HASTE, axial 2-D FLASH in- and [id number] with subtractions from the hepatic dome to the iliac crests. COMPARISON: [facility], , US ABDOMEN LIMITED, 07/29/2025, 7:24. FINDINGS: Image quality: Diagnostic Lower chest: Lung bases are unremarkable on limited MRI evaluation Liver: Mild hepatic steatosis. On this noncontrast study, no focal lesion is seen Gallbladder and biliary system: Cholelithiasis nondilated biliary tree Pancreas: No ductal dilation. Spleen: Nonenlarged Adrenals: 2.6 cm right adrenal nodule is present. There is chemical shift artifact on opposed phase imaging. This does not appear to be arising from the kidney Kidneys: No hydronephrosis. Vessels and lymph nodes: No lymphadenopathy by size criteria. No abdominal aortic aneurysm. Bowel and peritoneum: No bowel obstruction. No drainable abscess or ascites in the abdomen Body wall: Unremarkable Bones: No aggressive appearing osseous finding. Diffuse osseous degenerative changes are present. 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 Correlate with biochemical testing to determine functional status. This appears to be arising from the inferior lateral limb of the right adrenal as opposed to the kidney (best assessed on series 3.) Dictated by: Shahbaz Goldstein M.D. on 08/09/2025 at 7:01 Approved by: Shahbaz Goldstein M.D. on 08/09/2025 at 7:07
== END ==
LOC: MRI 15:01
PROVIDERS: PCP Family Medicine; Referring Provider Surgery; Visit Provider Surgery
DX: D35.01 Benign neoplasm of right adrenal gland (principal); R19.00 Intra-abdominal and pelvic swelling, mass and lump, unspecified site; K76.0 Fatty (change of) liver, not elsewhere classified; K80.20 Calculus of gallbladder without cholecystitis without obstruction
CPT/HCPCS: 74181

== ENCOUNTER 2025-08-18 08:14 | Emergency (ER) | payer OTHER, SELFPAY ==
[2025-03-26 14:39] VITALS: BMI 35.6
[2025-08-18 08:30] VITALS: BP 172/96; PULSE 73; RESP 17; TEMP 36.6; O2SAT 97; BMI 43.2
[2025-08-18 08:31] VITALS: BP 172/96
[2025-08-18 08:32] VITALS: PULSE 76; O2SAT 99
[2025-08-18 09:02] LABS: Add Manual Diff / Slide Review NO; Hematocrit 36.8 % (36-46); Hemoglobin 12.2 g/dL (12.0-16.0); Lymphocytes Absolute Auto 1500 /uL (1100-4500); Mean Corpuscular HGB Conc 33.2 % (30-36); Mean Corpuscular Hemoglobin 28.8 PG (26-34); Mean Corpuscular Volume 86.5 fL (80-100); Platelet Count 302 X10^3/uL (150-400)
--- NOTE | 2025-08-18 09:04 | ED.ABDPAIN ---
HPI - Abdominal Pain General Chief Complaint: Abdominal Pain Stated Complaint: Upper right side Abdominal pain 1 day Time Seen by Provider: 08/18/25 08:43 Source: patient Mode of arrival: Family Vehicle History of Present Illness HPI narrative: Patient is a 54-year-old female presenting to day with abdominal pain. She has known cholelithiasis she has met with surgery as scheduled cholecystectomy but not until October. Presenting today with abdominal pain. No nausea or vomiting she does have pain radiating up to her right shoulder. No fever or chills. She also started a GLP 1 about a month ago. sHe denies any chest pain. Related Data Home Medications ?Medication ?Instructions ?Recorded ?Confirmed ibuprofen 200 mg tablet (Advil) 200 mg PO PRN PRN Back Pain 05/10/19 08/11/25 metoprolol succinate 25 mg 50 mg PO DAILY 03/31/25 08/11/25 tablet,extended release 24 hr omeprazole 20 mg capsule,delayed 20 mg PO DAILY 06/23/25 08/11/25 release escitalopram oxalate 5 mg tablet 5 mg PO .prn 08/11/25 08/11/25 meloxicam 7.5 mg tablet 7.5 mg PO .prn 08/11/25 08/11/25 tirzepatide (weight loss) 2.5 2.5 mg SUBCUT QWEEK 08/11/25 08/11/25 mg/0.5 mL subcutaneous pen injector (Zepbound) Allergies Allergy/AdvReac Type Severity Reaction Status Date / Time No Known Drug Allergies Allergy Verified 08/18/25 08:37 Patient History Medical History (Updated 08/18/25 @ 10:21 by Sharla Cespedes DO) Palpitations Social History household members: spouse alcohol intake: former Smoking Status: Never smoker alcohol intake frequency: holidays/special occasions only Exam Initial Vital Signs Initial Vital Signs: Vital Signs Temperature 97.8 F 08/18/25 08:30 Pulse Rate 73 08/18/25 08:30 Respiratory Rate 17 08/18/25 08:30 Blood Pressure 172/96 H 08/18/25 08:30 Pulse Oximetry 97 08/18/25 08:30 Oxygen Delivery Method Room Air 08/18/25 08:30 GENERAL: Alert pleasant well-appearing 54-year-old female and in no acute distress. HEENT: Head atraumatic,EOMI, pupils reactive, face symmetric, moist mucous membranes CARDIOVASCULAR: Regular rate and rhythm without murmurs, rubs or gallops. RESPIRATORY: Breath sounds equal bilaterally, no wheezes rales or rhonchi. ABDOMEN: Soft, mild upper abdominal tenderness slight positive Hunter's sign minimal epigastric pain no guarding no rebound no distention EXTREMITIES: Normal range of motion, no clubbing or edema. Neurovascularly intact NEUROLOGICAL: Alert and oriented x4.Normal gait and speech. Cranial nerves II through XII grossly intact. SKIN: Warm, dry, no laceration, no petechiae, no rashes or lesions. Course Orders Ordered: ED Orders 08/18/25 08:42 Urine Microscopic Stat 08/18/25 08:45 Complete Blood Count AUTO DIFF Stat Comprehensive Metabolic Panel Stat Lipase Stat EKG-12 Lead Stat 08/18/25 09:09 US abdomen limited Stat Discontinued Medications Ketorolac Tromethamine (Ketorolac 30 Mg/Ml Vial) 15 mg IV NOW ONE Stop: 08/18/25 09:10 Last Admin: 08/18/25 09:41 Dose: 15 mg Documented By: SHOAIB Ondansetron HCl (Ondansetron 4 Mg/2 Ml Inj) 4 mg IV NOW PRN PRN Reason: Nausea And Vomiting Ondansetron HCl (Ondansetron 4 Mg Odt) 4 mg PO NOW PRN PRN Reason: Nausea And Vomiting Vital Signs Vital signs: Vital Signs - 8 hr 08/18/25 08:30 08/18/25 08:31 08/18/25 08:32 Temperature 97.8 F Pulse Rate 73 76 Respiratory Rate 17 Blood Pressure 172/96 H 172/96 H Pulse Oximetry 97 99 Oxygen Delivery Method Room Air 08/18/25 10:51 Temperature Pulse Rate 97 H Respiratory Rate 16 Blood Pressure 164/91 H Pulse Oximetry 97 Oxygen Delivery Method Room Air MDM - Abdominal Pain Lab Data 08/18/25 08:45 08/18/25 08:45 Labs: Lab Results 08/18/25 08/18/25 Range/Units 08:42 08:45 WBC 11.6 H (4.5-11.0) X10^3/uL RBC 4.25 (4.0-5.2) X10^6/uL Hgb 12.2 (12.0-16.0) g/dL Hct 36.8 (36-46) % MCV 86.5 (80-100) fL MCH 28.8 (26-34) PG MCHC 33.2 (30-36) % RDW 13.9 (11.6-14.8) % Plt Count 302 (150-400) X10^3/uL Neut % (Auto) 79.3 H (50-75) % Lymph % (Auto) 13.0 L (25-40) % Yell % (Auto) 6.6 (3-14) % Eos % (Auto) 0.4 L (2-4) % Baso % (Auto) 0.7 (0-2) % Neut # (Auto) 9200 H (1218-8789) /uL Lymph # (Auto) 1500 (6327-1929) /uL Yell # (Auto) 800 (0-900) /uL Eos # (Auto) 0 (0-450) /uL Baso # (Auto) 100 (0-100) /uL Sodium 133 L (137-145) mmol/L Potassium 4.0 (3.4-5.1) mmol/L Chloride 99 (98-107) mmol/L Carbon Dioxide 25 (22-32) mmol/L BUN 22 H (7-17) mg/dL Creatinine 0.69 (0.52-1.04) mg/dL Estimated GFR > 60 (>60) mL/min BUN/Creatinine Ratio 31.9 H (6-22) Glucose 120 H (70-99) mg/dL Calcium 8.9 (8.4-10.2) mg/dL Total Bilirubin 0.5 (0.2-1.3) mg/dL AST 36 (14-36) IU/L ALT 23 (<35) IU/L Alkaline Phosphatase 71 (38-126) U/L Total Protein 8.3 H (6.3-8.2) g/dL Albumin 4.9 (3.5-5.0) g/dL Globulin 3.4 (1.7-4.1) g/dL Albumin/Globulin Ratio 1.4 (1.0-2.8) Lipase 73 (23-300) U/L Urine RBC 5-10/hpf H (0-5/HPF) Urine WBC None seen (0-5/HPF) Ur Squamous Epith Cells 5-10 /hpf H (0-5/HPF) Urine Bacteria None seen (None) Ur Culture Indicated? Cult not indicated Vol Urine Centrifuged 10ml (spun) Point of care testing: Urine Dip Bedside Urine Glucose Negative Bedside Urine Bilirubin - Negative Bedside Urine Ketone - Negative Urine Specific [place] 1.010 Bedside Urine Occult Blood ++ Bedside Urine pH 7.0 Bedside Urine Protein +/- 15 Bedside Urine Urobilinogen - Negative Bedside Urine Nitrite - Negative Bedside Urine Leukocytes - Negative Esterase Imaging Data US - abdomen: Radiologist's Impression: PROCEDURE: US ABDOMEN LIMITED INDICATIONS: RUQ PAIN; KNOWN GALLSTONES TECHNIQUE: Real-time scanning was performed of the abdominal and retroperitoneal organs, with image documentation. COMPARISON: [facility], [place], US ABDOMEN LIMITED, 07/29/2025, 7:24. FINDINGS: Liver: Liver is normal in size and homogeneous in echotexture. Gallbladder: Cholelithiasis. No wall thickening. No pericholecystic edema. Negative sonographic Hunter's sign. Biliary ducts: Intrahepatic bile ducts are non-dilated. Extrahepatic bile duct caliber measures 8.5 mm. Normal is 6-7 mm or less in diameter, or 10 mm or less post-cholecystectomy. Pancreas: Visualized portions of the pancreas are sonographically normal. Miscellaneous: No free abdominal fluid. IMPRESSION: Cholelithiasis without sonographic evidence of acute cholecystitis. Mildly dilated common bile duct measuring 8.5 mm. Recommend correlation with LFTs. Approved by: Chanel Bernard M.D.,Ph.D. on 08/18/2025 at 9:45 MDM Narrative Medical decision making narrative: MDM CC: Abdominal Complicating co-morbidities: Cholelithiasis obesity adrenal mass Data collected from: Patient, general surgery record reviewed Medical records reviewed: General surgery record reviewed from 08/11/2025. Recommend laparoscopic cholecystectomy she wishes to have it done in the spring time. She has had an MRI for an adrenal mass and further testing and evaluation of this can be done with her PCP Differential considered: Cholelithiasis cholecystitis pancreatitis Exam documented above, pertinent findings include: Minimal right upper quadrant pain no guarding no rebound Lab Test results independently reviewed as above. Pertinent findings: CBC within normal limits mild leukocytosis of 11.6 CMP within normal limit Bilirubin liver enzymes within normal limits, T bili is 0.5 AST 36 ALT 23 alk-phos 71 lipase 73 Imaging studies independently reviewed: Ultrasound right upper quadrant cholelithiasis without cholecystitis mild dilated common bile duct Consultations: [ ] Treatments: Toradol Re-evaluations: She is feeling little bit better after Toradol Discussion: Patient 54-year-old female presenting today with upper abdominal pain more on right upper quadrant with known cholelithiasis. Blood work today is overall reassuring she has no elevated bilirubin or liver enzymes no leukocytosis. Ultrasound does not show evidence of acute cholecystitis. Symptoms with radiation to her right shoulder correlate with cholelithiasis. Recommend outpatient follow-up with surgery in regards to moving up her surgery if she so chooses. Discharge Plan Departure Patient Disposition: Home Clinical Impression: Cholelithiasis Instructions: Gallstones Activity Restrictions/Additional Instructions: *You have been diagnosed with cholelithiasis *What to do: This time please call surgery to schedule follow up appointment. You may want to schedule surgery sooner at this time no need for emergent surgery Avoid fatty foods and follow gallbladder diet *Continue to take medications as directed *Follow up with your primary care provider in 2-3 days or call [phone] *Return to ER if you should have increasing pain fever persistent vomiting or any new, worsening or concerning symptoms Prescriptions: No Action omeprazole 20 mg capsule,delayed release(DR/EC) 20 mg PO DAILY meloxicam 7.5 mg tablet 7.5 mg PO .prn Zepbound 2.5 mg/0.5 mL pen injector 2.5 mg SUBCUT QWEEK Rx Instructions: for 4 weeks metoprolol succinate 25 mg tablet extended release 24 hr 50 mg PO DAILY escitalopram oxalate 5 mg tablet 5 mg PO .prn ibuprofen [Advil] 200 mg Tablet 200 mg PO PRN PRN (Reason: Back Pain) Referrals: Martha Rose DO [Primary Care Provider, Family Practice] Stand Alone Forms: Patient Portal/API
[2025-08-18 09:08] LABS: Culture Indicated Urine Cult Not Indicated
--- NOTE | 2025-08-18 09:09 | DI.US.S_ITS ---
PROCEDURE: US ABDOMEN LIMITED INDICATIONS: RUQ PAIN; KNOWN GALLSTONES TECHNIQUE: Real-time scanning was performed of the abdominal and retroperitoneal organs, with image documentation. COMPARISON: [facility], [place], US ABDOMEN LIMITED, 07/29/2025, 7:24. FINDINGS: Liver: Liver is normal in size and homogeneous in echotexture. Gallbladder: Cholelithiasis. No wall thickening. No pericholecystic edema. Negative sonographic Hunter's sign. Biliary ducts: Intrahepatic bile ducts are non-dilated. Extrahepatic bile duct caliber measures 8.5 mm. Normal is 6-7 mm or less in diameter, or 10 mm or less post-cholecystectomy. Pancreas: Visualized portions of the pancreas are sonographically normal. Miscellaneous: No free abdominal fluid. IMPRESSION: Cholelithiasis without sonographic evidence of acute cholecystitis. Mildly dilated common bile duct measuring 8.5 mm. Recommend correlation with LFTs. Approved by: Chanel Bernard M.D.,Ph.D. on 08/18/2025 at 9:45
--- NOTE | 2025-08-18 09:12 | EKG_ITS ---
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
[2025-08-18 09:13] LABS: Alanine Aminotransferase 23 IU/L (<35); Albumin 4.9 g/dL (3.5-5.0); Albumin Globulin Ratio 1.4 (1.0-2.8); Alkaline Phosphatase 71 U/L (38-126); Blood Urea Nitrogen 22 mg/dL (7-17); Calcium 8.9 mg/dL (8.4-10.2); Carbon Dioxide 25 mmol/L (22-32); Chloride 99 mmol/L (98-107); Estimated Glomerular Filt Rate > 60 mL/min (>60); Globulin 3.4 g/dL (1.7-4.1); Glucose 120 mg/dL (70-99); HEMOLYSIS 26 (0-50); Lipase 73 U/L (23-300); Potassium 4.0 mmol/L (3.4-5.1); Sodium 133 mmol/L (137-145); Total Protein 8.3 g/dL (6.3-8.2)
[2025-08-18] MEDS: KETOROLAC 30 MG/ML VIAL 15 MG IV (09:41)
[2025-08-18 10:51] VITALS: BP 164/91; PULSE 97; RESP 16; O2SAT 97
== END 2025-08-18 10:56 | disposition home or self-care (01) ==
PROVIDERS: Emergency Provider Emergency Medicine; PCP Family Medicine
DX: K80.20 Calculus of gallbladder without cholecystitis without obstruction (principal)
CPT/HCPCS: 36415; 76705; 80053; 81003; 81015; 83690; 85025; 93005; 96374; 99284; J1885